=== PATIENT | female | born 1975 | race Caucasian/White ===

== ENCOUNTER 2024-05-18 16:16 | Outpatient (REF) | payer OTHER, SELFPAY ==
[2024-05-18 16:32] LABS: Amphetamine Screen Urine POSITIVE (Not Detect); Barbiturates, Urine Not Detected (Not Detect); Benzodiazepines Screen Urine POSITIVE (Not Detect); Buprenorphine Scr Not Detected (Not Detect); Cannabinoid Screen Urine Not Detected (Not Detect); Cocaine Screen Urine Not Detected (Not Detect); Fentanyl, urine Not Detected (Not Detect); Methadone Screen, Urine Not Detected (Not Detect); Opiate Screen Urine Not Detected (Not Detect); Oxycodone Screen Urine Not Detected (Not Detect); Phencyclidine Screen Urine Not Detected (Not Detect)
--- OUTSIDE RECORDS SUMMARY | 2024-05-20 18:05 | XMS_ITS | Continuity of Care Document ---
Author Organization [facility] Address [address] [place] [address]- Support Name Relationship Address Phone DARLING, AVILA Personal Relationship Unknown Unava ilable DARLING, AVILA Personal Relationship Unknown Unava ilable DARLING, AVILA Personal Relationship Unknown Unava ilable DARLING, AVILA Personal Relationship Unknown Unava ilable KWAME, ALVARO mother Unknown Unavailab le DARLING, AVILA Personal Relationship Unknown Unava ilable DARLING, AVILA Personal Relationship Unknown Unava ilable DARLING, AVILA Personal Relationship Unknown Unava ilable DARLING, AVILA Personal Relationship Unknown Unava ilable DARLING, AVILA Personal Relationship Unknown Unava ilable DARLING, AVILA Personal Relationship Unknown Unava ilable DARLING, AVILA Personal Relationship Unknown Unava ilable DARLING, AVILA Personal Relationship Unknown Unava ilable DARLING, AVILA Personal Relationship Unknown Unava ilable DARLING, AVILA Personal Relationship Unknown Unava ilable DARLING, AVILA Personal Relationship Unknown Unava ilable DARLING, AVILA Personal Relationship Unknown Unava ilable DARLING, AVILA Personal Relationship Unknown Unava ilable DARLING, AVILA spouse Unknown Unavailable DARLING, AVILA Personal Relationship Unknown Unava ilable DARLING, AVILA Personal Relationship Unknown Unava ilable DARLING, AVILA Personal Relationship Unknown Unava ilable DARLING, AVILA Personal Relationship Unknown Unava ilable DARLING, AVILA Personal Relationship Unknown Unava ilable DARLING, AVILA Personal Relationship Unknown Unava ilable DARLING, AVILA Personal Relationship Unknown Unava ilable DARLING, AVILA spouse Unknown Unavailable DARLING, AVILA Personal Relationship Unknown Unava ilable DARLING, AVILA Personal Relationship Unknown Unava ilable DARLING, AVILA Personal Relationship Unknown Unava ilable DARLING, AVILA Personal Relationship Unknown Unava ilable DARLING, AVILA Personal Relationship Unknown Unava ilable DARLING, AVILA spouse Unknown Unavailable DARLING, AVILA Personal Relationship Unknown Unava ilable DARLING, AVILA Personal Relationship Unknown Unava ilable DARLING, AVILA Personal Relationship Unknown Unava ilable DARLING, AVILA Personal Relationship Unknown Unava ilable DARLING, AVILA Personal Relationship Unknown Unava ilable DARLING, RAHUL A Personal Relationship Unknown Unavailable DARLING, AVILA Personal Relationship Unknown Unava ilable DARLING, AVILA Personal Relationship Unknown Unava ilable Care Team Providers Care Chef Teacher Name Role Phone Miguelito DIESEL ENGINE PIPE FITTER, Freda Manzo Primary Care Physician Encounter [facility] Date(s): 04/07/24 - 05/07/[address] Encounter Type: Triage Allergies, Adverse Reactions, Alerts Substance Criticality Severity Reaction Reaction Severity Status sulfa drugs Rash Active Immunizations Given and Recorded Vaccine Date Status Refusal Reason zoster vaccine, inactivated 02/19/24 Recorded zoster vaccine, inactivated 10/05/23 Recorded influenza virus vaccine, inactivated 02/19/24 Marty rded influenza virus vaccine, inactivated 03/27/23 Marty rded influenza virus vaccine, inactivated 04/17/22 Marty rded influenza virus vaccine, inactivated 02/24/21 Marty rded influenza virus vaccine, inactivated 04/02/19 Marty rded influenza virus vaccine, inactivated 03/29/18 Give n influenza virus vaccine, inactivated 02/25/17 Marty rded influenza virus vaccine, inactivated 1 02/17/15 Re corded influenza virus vaccine, inactivated 04/13/14 Marty rded influenza virus vaccine, inactivated 03/10/13 Give n influenza virus vaccine, inactivated 2 04/10/12 Gi jacob influenza virus vaccine, inactivated 01/25/11 Marty rded SARS-CoV-2(COVID-19)mRNA-LNP vac([id number]) 02/19/24 Recorded SARS-CoV-2(COVID-19)mRNA-LNP vac([id number]) 03/27/23 Recorded tetanus-diphtheria toxoids (Td) 06/28/22 Given tetanus-diphtheria toxoids (Td) 06/10/01 Recorded [id number] 12y+ bivalent booster vax 06/28/22 Given SARS-CoV-2 (COVID-19) mRNA BNT-162b2 vac 06/15/21 Recorded SARS-CoV-2 (COVID-19) mRNA BNT-162b2 vac 09/15/20 Recorded SARS-CoV-2 (COVID-19) mRNA BNT-162b2 vac 08/25/20 Recorded Measles/Mumps/Rubella Virus Vaccine 3 05/18/21 Giv en Measles/Mumps/Rubella Virus Vaccine 04/10/21 Recor ded Influenza Virus Vaccine (oldterm) 4 03/23/20 Recor ded Afluria (oldterm) 03/08/16 Given tetanus/diphtheria/pertussis, acel(Tdap) 5 05/07/12 Recorded 1Result Comment: [02/21/2015] FLUVIRIN Done at [facility] 2Admin Note: Per pt 3Result Comment: [facility]: [id number] 4Result Comment: [facility] 5[facility] Medications acetaminophen/butalbital/caffeine 325 mg-50 mg-40 mg oral capsule 1 capsule, By Mouth, Daily, PRN Pain , Severe, For severe migraines-please use sparingly, 0 Refills, Maintenance, 04/27/24 12:38:00 PM EST, Partial fill upon patient request if the prescription is for a schedule II opioid drug. Start Date: 04/27/24 Status: Ordered Repeat number: 1 ALPRAZolam 0.5 mg oral tablet 0.5 mg, By Mouth, 2 times a day, PRN, Refills 0, Maintenance, Anxiety, 04/30/24 9:08:00 AM EST, Partial fill upon patient request if the prescription is for a schedule II opioid drug. Start Date: 04/30/24 Status: Ordered Repeat number: 1 BuSpar 10 mg oral tablet 10 mg, By Mouth, 2 times a day, Refills 0, Maintenance, 04/27/24 12:42:00 PM EST, Partial fill uponpatient request if the prescription is for a schedule II opioid drug. Start Date: 04/27/24 Status: Ordered Repeat number: 1 DilTIAZem (Eqv-Cardizem CD) 120 mg/24 hours oral capsule, extended release 1 capsule = 120 mg, By Mouth, Daily, 0 Refills, Maintenance, 04/27/24 12:42:00 PM EST, Partial fillupon patient request if the prescription is for a schedule II opioid drug. Start Date: 04/27/24 Status: Ordered Repeat number: 1 estradiol 0.05 mg/24 hours weekly transdermal film, extended release 1 patch, Topically, Every week, apply to skin- every , # 4 patch, 0 Refills, Maintenance, 04/27/24 12:44:00 PM EST, Patch, Partial fill upon patient request if the prescription is for a schedule II opioid drug. Start Date: 04/27/24 Status: Ordered Quantity: 4.0 Unit: patch Repeat number: 1 Lexapro 10 mg oral tablet 1 tablet = 10 mg, By Mouth, Daily, # 30 tablet, 0 Refills, Maintenance, 04/27/24 12:43:00 PM EST, Tablet, Partial fill upon patient request if the prescription is for a schedule II opioid drug. Start Date: 04/27/24 Status: Ordered Quantity: 30.0 Unit: tablet Repeat number: 1 mirtazapine 7.5 mg oral tablet = 7.5 mg, By Mouth, Daily at bedtime, # 30 tablet, 0 Refills, Maintenance, 04/30/24 9:09:00 AM EST,Tablet, [id number], Partial fill upon patient request if the prescription is for aschedule II opioid drug., 157, cm, 04/29/24 8:48:00 EST, Height, 51.8, kg, 04/27/24 15:20:00 EST, Dry Weight Start Date: 04/30/24 Status: Ordered Quantity: 30.0 Unit: tablet Repeat number: 1 NexIUM 24HR 20 mg oral delayed release capsule 1 capsule = 20 mg, By Mouth, Daily, 0 Refills, Maintenance, 04/27/24 12:43:00 PM EST, Partial fill upon patient request if the prescription is for a schedule II opioid drug. Start Date: 04/27/24 Status: Ordered Repeat number: 1 Problem List Condition Confirmation Course Effective Dates Status Health St atus Informant Acne Confirmed Active Anxiety depression 1 Confirmed Active Chronic headache Confirmed Active Vertebral artery dissection Confirmed Active Blood pressure elevated without history of HTN Confirmed Active External hemorrhoid Confirmed Active GERD - Gastro-esophageal reflux disease Confirmed Active Gluteal tendonitis Confirmed Active Hypertension Confirmed Active Pelvic pain Confirmed Active Palpitations Confirmed Active Substance abuse Confirmed Active 1sees psych Social History Social History Type Response Smoking Status Never smoker entered on: 06/02/13 Sex Sex Representation Female (finding) Patient Care team information Care Team Personnel Name: Freda Farley NP Position: [facility] PCO Associate Professional Member Role: PCP Address: [address] [place] [address] Telecom: Name: Perry Khan RN Position: S RN Member Role: Primary Care Nurse Name: Stiven Tatum RN Position: S RN Member Role: Primary Care Nurse Name: Hope Camejo RN Position: S RN Member Role: Primary Care Nurse Name: Eunice William RN Position: [facility] RN Member Role: Primary Care Nurse Care Team Related Persons Name: AVILA SUAREZ Insurance Providers Guarantor [facility] Information #: 1 Payer: [facility] HMO Member Number: NA Policy Number: NA Group Number: NA
--- OUTSIDE RECORDS SUMMARY | 2024-05-20 18:05 | XMS_ITS | Continuity of Care Document ---
Author Organization [facility] Address [address] [place] [address]- Support Name Relationship Address Phone DARLING, AVILA [...] Unknown Unava ilable Care Team Providers Care Orthopedically Impaired Teacher Name Role Phone Miguelito TAG MAKER, Freda Manzo Primary Care Physician Encounter [facility] [place] Date(s): 04/01/24 - 05/01/24 [facility] [address] Encounter Type: Triage Allergies, Adverse Reactions, [...] virus vaccine, inactivated 01/25/11 Marty rded SARS-CoV-2(COVID-19)mRNA-LNP vac([id number]) 02/19/24 Recorded SARS-CoV-2(COVID-19)mRNA-LNP vac([id number]) 03/27/23 Recorded tetanus-diphtheria toxoids (Td) 06/28/22 Given tetanus-diphtheria toxoids (Td) 06/10/01 Recorded [id number] 12y+ bivalent booster vax 06/28/22 Given SARS-CoV-2 (COVID-19) mRNA BNT-162b2 vac 06/15/21 Recorded SARS-CoV-2 (COVID-19) mRNA BNT-162b2 vac 09/15/20 Recorded SARS-CoV-2 (COVID-19) mRNA BNT-162b2 vac 08/25/20 Recorded Measles/Mumps/Rubella Virus Vaccine 3 05/18/21 Giv en Measles/Mumps/Rubella Virus Vaccine 04/10/21 Recor ded Influenza Virus Vaccine (oldterm) 4 03/23/20 Recor ded Afluria (oldterm) 03/08/16 Given tetanus/diphtheria/pertussis, acel(Tdap) 5 05/07/12 Recorded 1Result Comment: [02/21/2015] [facility] 2Admin Note: Per pt 3Result Comment: [facility][NOTE 3]: [id number] 4Result Comment[facility] 5Location History[facility] Medications acetaminophen/butalbital/caffeine 325 mg-50 mg-40 mg oral [...] 0 Refills, Maintenance, 04/30/24 9:09:00 AM EST,Tablet, [id number], Partial fill upon patient request if the [...] Team Personnel Name: Freda Farley NP Position: [facility] PCO Associate Professional Member Role: PCP Address: [address] [place] [address] Telecom: Name: Perry Khan RN Position: S RN Member Role: Primary Care Nurse Name: Stiven Tatum RN Position: S RN Member Role: Primary Care Nurse Name: Hope Camejo RN Position: S RN Member Role: Primary Care Nurse Name: Eunice William RN Position: [facility] RN Member Role: Primary Care Nurse Care Team Related Persons Name: AVILA SUAREZ Insurance Providers Guarantor name: RAHUL Count includes the [facility] Information #: 1 Payer: [facility] HMO Member Number: NA Policy Number: NA Group Number: NA
--- OUTSIDE RECORDS SUMMARY | 2024-05-20 18:05 | XMS_ITS | Continuity of Care Document ---
Author Organization [facility] Medicine Address [address] [place] [address]- Care Team Providers Care Pharmacy Intake Technician Name Role Phone Miguelito HERNANDEZ, Freda Manzo Primary Care Physician Encounter [facility] Date(s): 03/20/24 - 04/19/[address] [address]- Attending Physician: Marti Alarcon Admitting Physician: Marti Alarcon Referring Physician: AdmtrMarti Allergies, Adverse Reactions, Alerts Substance Reaction Severity Status sulfa drugs Rash Active [...] virus vaccine, inactivated 01/25/11 Marty rded SARS-CoV-2(COVID-19)mRNA-LNP vac([id number]) 02/19/24 Recorded SARS-CoV-2(COVID-19)mRNA-LNP vac([id number]) 03/27/23 Recorded tetanus-diphtheria toxoids (Td) 06/28/22 Given tetanus-diphtheria toxoids (Td) 06/10/01 Recorded [id number] 12y+ bivalent booster vax 06/28/22 Given SARS-CoV-2 (COVID-19) mRNA BNT-162b2 vac 06/15/21 Recorded SARS-CoV-2 (COVID-19) mRNA BNT-162b2 vac 09/15/20 Recorded SARS-CoV-2 (COVID-19) mRNA BNT-162b2 vac 08/25/20 Recorded Measles/Mumps/Rubella Virus Vaccine 3 05/18/21 Giv en Measles/Mumps/Rubella Virus Vaccine 04/10/21 Recor ded Influenza Virus Vaccine (oldterm) 4 03/23/20 Recor ded Afluria (oldterm) 03/08/16 Given tetanus/diphtheria/pertussis, acel(Tdap) 5 05/07/12 Recorded 1Result Comment: [02/21/2015] FLUVIRIN Done at [facility] 2Admin Note: Per pt 3Result Comment: [facility]: [id number] [facility] Medications acetaminophen/butalbital/caffeine 325 mg-50 mg-40 mg oral tablet See Instructions, PRN Pain , Severe, Take 1 Tablet By Mouth Once Daily PRN for severe migrain. Use sparingly., # 10 tablet, 1 Refills, Maintenance, 04/08/24 14:07:00 EDT, [facility] #[id number], Partial fill upon patient request if the prescriptio... Start Date: 04/08/24 Status: Ordered busPIRone 10 mg oral tablet take 1 tablet by mouth twice a day Start Date: 02/18/24 Status: Ordered dilTIAZem 120 mg/24 hours oral tablet, extended release 1 tablet, By Mouth, Daily, # 90 tablet, 0 Refills, Maintenance, 02/18/24 10:12:00 EDT, [facility] #[id number], 158, cm, 12/11/23 8:58:00 EDT, Height, 55.8, kg, 11/29/23 11:14:00 EDT, Dry Weight Start Date: 02/18/24 Status: Ordered Diltiazem HCl 2%/Lidoncaine 1.5% rectal ointment Diltiazem HCl 2%/Lidoncaine 1.5% rectal ointment, See Instructions, # 60 Gm, Refills 5, Tot. Refills 5, Maintenance, Apply a pea sized amount to anus twice daily, 11/29/23 13:23:00 EDT, Supply Start Date: 11/29/23 Status: Ordered estradiol 0.05 mg/24 hours weekly transdermal film, extended release 1 patch, Topically, Every week, # 4 patch, 0 Refills, Maintenance, 11/01/20 16:12:00 EDT, Patch, Partial fill upon patient request if the prescription is for a schedule II opioid drug. Start Date: 11/01/20 Status: Ordered fluconazole 150 mg oral tablet 1 tablet = 150 mg, By Mouth, Once, epeat dose if still having symptoms in 72 hours, # 2 tablet, 0 Refills, Soft Stop, 09/25/23 15:08:00 EDT, Tablet, [facility] #[id number], Partial fill upon patient requestif the prescription is for a schedule II opioid lgo... Start Date: 09/25/23 Status: Ordered lactobacillus acidophilus oral capsule 1 capsule, By Mouth, 2 times a day, # 20 capsule, 0 Refills, Maintenance, 09/25/23 15:08:00 EDT, [facility] #[id number], Partial fill upon patient request if the prescription is for a schedule II opioid drug., 1 capsule By Mouth 2 times a day,x10 days, 158,... Start Date: 09/25/23 Stop Date: 10/05/23 Status: Ordered Lexapro 10 mg oral tablet 1 tablet = 10 mg, By Mouth, Daily, 0 Refills, Maintenance, 11/01/20 16:02:00 EDT, Partial fill uponpatient request if the prescription is for a schedule II opioid drug. Start Date: 11/01/20 Status: Ordered lidocaine 5% rectal cream See Instructions, apply 3 times a day, # 2 each, 0 Refills, Maintenance, 11/14/23 14:45:00 EDT, [facility] #[id number], Partial fill upon patient request if the prescription is for a schedule II opioid drug., apply 3 times a day, 158, cm, 11/14/23 14:03:00 E... Start Date: 11/14/23 Status: Ordered lisinopril 10 mg oral tablet 1, tablet, By Mouth, Daily, # 90 tablet, Refills 1, Tot. Refills 1, Maintenance, 10/09/22 9:06:00 EDT, Route to Pharmacy Electronically, [facility][id number], 158, cm, 06/28/22 14:27:00 EST, Height, 57, kg, 12/31/20 22:20:00 EDT, Dry Weight Start Date: 10/09/22 Status: Ordered NexIUM 24HR 20 mg oral delayed release tablet 1 tablet = 20 mg, By Mouth, Daily in AM, 0 Refills, Maintenance, 08/06/23 13:17:00 EST, Partial fill upon patient request if the prescription is for a schedule II opioid drug. Start Date: 08/06/23 Status: Ordered omeprazole 20 mg oral enteric coated capsule 1 capsule = 20 mg, By Mouth, Daily, # 90 capsule, 0 Refills, Maintenance, 11/28/22 14:47:00 EDT, [facility], Partial fill upon patient request if the prescription is for a schedule II opioid drug. Start Date: 11/28/22 Status: Ordered Requip = 0.25 mg, By Mouth, Daily, 0 Refills, Maintenance, 06/28/22 14:56:00 EST, Partial fill upon patient request if the prescription is for a schedule II opioid drug. Start Date: 06/28/22 Status: Ordered Vyvanse 50 mg oral capsule = 40 mg, By Mouth, Daily in AM, take 1 capsule by mouth every morning, 0 Refills Start Date: 11/28/22 Status: Ordered Xanax 1 mg oral tablet 0.5 tablet = 0.5 mg, By Mouth, Daily, PRN as needed for anxiety, prn, 0 Refills, Maintenance, 12/27/16 13:42:22 EDT Start Date: 12/27/16 Status: Ordered Problem List Condition Confirmation Course Effective Dates [...] Status Never smoker entered on: 06/02/13 Sex Cardiology * Event Display: Cardiology Office Note, Non-BH Authored Date: * Event Display: Cardiovascular Result Scanned Authored Date: * Event Display: Cardiovascular Result Scanned Authored Date: Laboratory * Event Display: Non BH Lab Results Authored Date: * Event Display: Non BH Lab Results Authored Date: * Event Display: Non BH Lab Results Authored Date: Cardiology Consult note * Event Display: Consult Note Cardiology Authored Date: Cardiology Outpatient Note * Kasia Castellanos M: PERFORM Event Display: Cardiology Note Office Authored Date: Radiology * Event Display: Ultrasound Neck, Non-BH Authored Date: * Event Display: Non BH Radiology Results Authored Date: MG Breast Views * Event Display: MM Mammogram Authored Date: * Event Display: MM Mammogram Authored Date: * Event Display: MM Mammogram Authored Date: * Event Display: MM Mammogram, Non- BH Authored Date: * Event Display: MM Mammogram, Non- BH Authored Date: * Event Display: MM Mammogram, Non- BH Authored Date: Patient Care team information Care Team Personnel Name: Freda Farley NP Position: S PCO Associate Professional Member Role: PCP Address: Address: [address] [place] [address]- Care Team Related Persons Name: AVILA SUAREZ Address: [address] [address]
--- OUTSIDE RECORDS SUMMARY | 2024-05-20 18:05 | XMS_ITS | Continuity of Care Document ---
Author Organization [facility] Address [address] [place] [address]- Support Name Relationship Address Phone DARLING, AVILA [...] Unknown Unava ilable Care Team Providers Care Senior Dynamics Crm Developer Name Role Phone Miguelito NATURAL RESOURCE ECONOMIST, Freda Manzo Primary Care Physician Encounter [facility] [id number] Date(s): 05/06/24 - 05/13/24 [facility] [address] [address] Attending Physician: Not on Staff, Attending MD Referring Physician: Markie Goncalves Encounter Type: Office Visit Allergies, Adverse Reactions, Alerts Substance Criticality Severity [...] virus vaccine, inactivated 01/25/11 Marty rded SARS-CoV-2(COVID-19)mRNA-LNP vac([id number]) 02/19/24 Recorded SARS-CoV-2(COVID-19)mRNA-LNP vac([id number]) 03/27/23 Recorded tetanus-diphtheria toxoids (Td) 06/28/22 Given tetanus-diphtheria toxoids (Td) 06/10/01 Recorded [id number] 12y+ bivalent booster vax 06/28/22 Given SARS-CoV-2 [...] Aid 2Admin Note: Per pt 3Result Comment: [facility]: [id number] 4[facility] Medications acetaminophen/butalbital/caffeine 325 mg-50 mg-40 mg [...] 0 Refills, Maintenance, 04/30/24 9:09:00 AM EST,Tablet, [facility] #[id number], Partial fill upon patient request if the [...] Team Personnel Name: Freda Farley NP Position: [facility] PCO Associate Professional Member Role: PCP Address: [address] [place] [address] Telecom: Name: Perry Khan RN Position: S RN Member Role: Primary Care Nurse Name: Deepti RNStiven Position: S RN Member Role: Primary Care Nurse Name: Hope Camejo RN Position: S RN Member Role: Primary Care Nurse Name: Eunice William RN Position: S RN Member Role: Primary Care Nurse Care Team Related Persons Name: AVILA SUAREZ Insurance Providers [facility]or [facility] Information #: 1 Payer: [facility] Member Number: [id number] Policy Number: NA Group Number: [id number] Health Plan Information #: 2 Payer: [facility] Member Number: [id number] Policy Number: NA Group Number: NA
--- OUTSIDE RECORDS SUMMARY | 2024-05-20 18:05 | XMS_ITS | Continuity of Care Document ---
Author Organization [facility] Address [address] [place] [address]- Support Name Relationship Address Phone DARLING, AVILA [...] Unknown Unava ilable Care Team Providers Care Locomotive Operator Helper Name Role Phone Miguelito GAS MAIN AND LINE FITTER, Freda Manzo Primary Care Physician [phone] Encounter [facility] Date(s): 04/08/24 - 05/08/[address] [address] Encounter Type: Triage Allergies, Adverse Reactions, Alerts [...] virus vaccine, inactivated 01/25/11 Marty rded SARS-CoV-2(COVID-19)mRNA-LNP vac([id number]) 02/19/24 Recorded SARS-CoV-2(COVID-19)mRNA-LNP vac(pit340) 03/27/23 Recorded tetanus-diphtheria toxoids (Td) 06/28/22 Given tetanus-diphtheria toxoids (Td) 06/10/01 Recorded [id number] 12y+ bivalent booster vax 06/28/22 Given SARS-CoV-2 (COVID-19) mRNA BNT-162b2 vac 06/15/21 Recorded SARS-CoV-2 (COVID-19) mRNA BNT-162b2 vac 09/15/20 Recorded SARS-CoV-2 (COVID-19) mRNA BNT-162b2 vac 08/25/20 Recorded Measles/Mumps/Rubella Virus Vaccine 3 05/18/21 Giv en Measles/Mumps/Rubella Virus Vaccine 04/10/21 Recor ded Influenza Virus Vaccine (oldterm) 4 03/23/20 Recor ded Afluria (oldterm) 03/08/16 Given tetanus/diphtheria/pertussis, acel(Tdap) 5 05/07/12 Recorded 1Result Comment: [02/21/2015] [facility] 2Admin Note: Per pt 3Result Comment: [facility]: [id number] 4Result Comment[facility] 5Location History[facility] Medications acetaminophen/butalbital/caffeine 325 mg-50 mg-40 mg oral [...] 0 Refills, Maintenance, 04/30/24 9:09:00 AM EST,Tablet, [facility] #[id number], Partial fill upon patient request if the [...] Team Personnel Name: Freda Farley NP Position: [facility] PCO Associate Professional Member Role: PCP Address: [address] [place] [address] Telecom: Name: Perry Khan RN Position: S RN Member Role: Primary Care Nurse Name: Stiven Tatum RN Position: S RN Member Role: Primary Care Nurse Name: Hope Camejo RN Position: S RN Member Role: Primary Care Nurse Name: Eunice William RN Position: S RN Member Role: Primary Care Nurse Care Team Related Persons Name: AVILA SUAREZ Insurance Providers Guarantor name: [facility] Information #: 1 Payer: [facility] H[facility] Member Number: NA Policy Number: NA Group Number: NA
--- OUTSIDE RECORDS SUMMARY | 2024-05-20 18:05 | XMS_ITS | Continuity of Care Document ---
Author Organization [facility] Address [address] [place] [address]- Support Name Relationship Address Phone DARLING, AVILA [...] Unknown Unava ilable Care Team Providers Care Performance Consultant Name Role Phone Miguelito WARDROBE ATTENDANT, Freda Manzo Primary Care Physician [place] [facility] [place] 04/30/24 [facility] [address] [place] [address] Encounter Diagnosis MDD (major depressive disorder), recurrent episode, moderate(Discharge Diagnosis) - 04/27/24 PAMELA (generalized anxiety disorder)(Discharge Diagnosis) - 04/27/24 Adjustment disorder with mixed emotional features(Discharge Diagnosis) - 04/27/24 Opioid use disorder, moderate, dependence(Discharge Diagnosis) - 04/27/24 Opiate dependence(Discharge Diagnosis) - 04/29/24 Discharge Disposition: A-D/C Home Attending Physician: Matthew Gutierrez MD Admitting Physician: Matthew Gutierrez MD Referring Physician: Matthew Gutierrez MD Encounter Type: Disch IP Allergies, Adverse Reactions, Alerts Substance Criticality Severity [...] virus vaccine, inactivated 01/25/11 Marty rded SARS-CoV-2(COVID-19)mRNA-LNP vac([id number]) 02/19/24 Recorded SARS-CoV-2(COVID-19)mRNA-LNP vac([id number]) 03/27/23 Recorded tetanus-diphtheria toxoids (Td) 06/28/22 Given tetanus-diphtheria toxoids (Td) 06/10/01 Recorded [id number] 12y+ bivalent booster vax 06/28/22 Given SARS-CoV-2 (COVID-19) mRNA BNT-162b2 vac 06/15/21 Recorded SARS-CoV-2 (COVID-19) mRNA BNT-162b2 vac 09/15/20 Recorded SARS-CoV-2 (COVID-19) mRNA BNT-162b2 vac 08/25/20 Recorded Measles/Mumps/Rubella Virus Vaccine 3 05/18/21 Giv en Measles/Mumps/Rubella Virus Vaccine 04/10/21 Recor ded Influenza Virus Vaccine (oldterm) 4 03/23/20 Recor ded Afluria (oldterm) 03/08/16 Given tetanus/diphtheria/pertussis, acel(Tdap) 5 05/07/12 Recorded 1Result Comment: [02/21/2015] FLUVIRIN Done at [facility] 2Admin Note: Per pt 3Result Comment: [facility]: [id number] 4Result Comment: [facility] 5Location History: [facility]; [facility] [...] 120 mg/24 hours oral capsule, extended release 120 mg, CD Capsule, By Mouth, 04/30/24 9:00:00 AM EST Start Date: 04/30/24 Stop Date: 04/30/24 Status: Completed Repeat number: 1 estradiol 0.05 mg/24 hours [...] 0 Refills, Maintenance, 04/30/24 9:09:00 AM EST,Tablet, [id number], Partial fill upon patient request if the [...] Active Substance abuse Confirmed Active 1sees psych Diagnosis Diagnosis Type Effective Dates Health Status Clinical Service Informant MDD (major depressive disorder), recurrent episode, moderate Discharge Diagnosis 04/27/24 PAMELA (generalized anxiety disorder) Discharge Diagnosis 04/27/24 Adjustment disorder with mixed emotional features Discharge Diagnosis 04/27/24 Opioid use disorder, moderate, dependence Discharge Diagnosis 04/27/24 Opiate dependence Discharge Diagnosis 04/29/24 Vital Signs Most recent to oldest [Reference Range]: 1 2 3 Height 157 cm (04/30/24 8:10 AM) 157 cm (04/29/24 8:48 AM) 157 cm (04/28/24 8:32 AM) Weight 51.8 kg (04/27/24 11:55 AM) Oxygen Saturation [94-100 %] 100 % (04/30/24 8:10 AM) 100 % (04/29/24 10:00 PM) 100 % (04/29/24 8:48 AM) Pulse Rate [55-90 bpm] 85 bpm (04/30/24 8:16 AM) 85 bpm (04/30/24 8:10 AM) 82 bpm (04/29/24 10:00 PM) Body Mass Index [18.5-24.99 kg/m2] 21.02 kg/m2 (04/27/24 11:55 AM) Blood Pressure [90-138/55-84 mm Hg] 136/108mm Hg (04/30/24 8:16 AM) 136/108mm Hg (04/30/24 8:10 AM) 135/76mm Hg (04/29/24 10:00 PM) Respiratory Rate [16-30 br/min] 20 br/min (04/30/24 8:10 AM) 20 br/min (04/30/24 8:00 AM) 16 br/min (04/29/24 10:00 PM) Temperature [96.8-100.4 DegF] 98.2 DegF (04/30/24 8:10 AM) 98.1 DegF (04/29/24 8:48 AM) 98.2 DegF (04/28/24 7:00 PM) Mode of Delivery (Oxygen) Room air (04/30/24 8:10 AM) Room air (04/29/24 8:48 AM) Room air (04/28/24 8:32 AM) Blood pressure sites Arm, left (04/30/24 8:10 AM) Arm, left (04/29/24 8:48 AM) Arm, left (04/28/24 8:32 AM) Temperature Route Temporal (04/30/24 8:10 AM) Temporal (04/29/24 8:48 AM) Oral (04/28/24 7:00 PM) Dry Weight 51.8 kg (04/27/24 11:55 AM) Social History Social History Type Response Smoking Status Never smoker entered on: 06/02/13 Sex Sex Representation Female (finding) Admission evaluation note * Brenda ZELAYA, Matthew Escobar: PERFORM Event Display: Admission Note Authored Date: [id number] Patient: ??ERIKC, RAHUL ? Age:??48 Years?Sex:??Female?:??1975?? 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 Upon arrival patient is calm and cooperative, she reported mood as better , she was noted tearful at times when talking about events leading to her impulsive suicide attempt. She reported that she??felt embarrassed??when the police showed up at her??work place after she was confronted with stealing opioids from work, she was asked to write a statement and when she was thought she was going to of [facility] addiction treatment, the police was waiting for her to summon her. 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 She reported that she resigned her job as she was leaving the pharmacy. ?? She said that she could not deal with the idea of going to assisted/residential, so she decide to buy a bottle of Tylenol PM and wrote 3 suicide letters, she believes her was able to track her (shewas in her car parked close to a bridge - she said she had no intention of jumping off the bridge-). Currently, she damantly denies any active/passive??suicidal thoughts, plan, or intent. She??regrets her suicide attempt, she is relief she survived, she reported her and mother and very supportive, she identified her family as protective factors.?She reported chronic insomnia, we discussed plan to start Remeron 7.5mg daily, she reported losing weight (~20 lbs) due to depression/anxiety. She is open to be referred to a PHP. ?? PSYCHIATRIC HISTORY - Patient reported she has been in psychiatric treatment for depression/anxiety?? since she was 16 yo, denies prior hospitalizations. She sees a therapist and a psychiatric nurse practitioner for [facility]. She is on Lexapro, Xanax, and Vyvanse (to augment Lexapro). Patient has history of opioid use disorder, has completed both outpatient [facility]and inpatient?? ([facility]) substance abuse treatment. She was on Suboxone until 2021.? FAMILY HISTORY - Denies? MEDICAL HISTORY - HTN, GERD, Migraines.?? - Allergies: Sulfas.? 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 - Legal History: patient denies prior legal involvement, she is said that pharmacy is filling charges for stealing narcotics at work.?? - Violence History: Denies?? - Substance Use Disorder: patient reported a history of substance use disorder, she was sober for 2years (while on Suboxone). She relapsed in October 2022, she has been using opioids?? sporadically (diverted from her job at [employer]), last used 2 weeks ago. Denies using any other substances.?? Mental Status Vitals & Measurements T:??98.6?F?? TMIN:??97.7?F?? TMAX:??98.6?F?? HR:??77??(Peripheral)?? RR:??16?? BP:??122/90?? SpO2:??100%?? WT:??51.8??kg?Mental Status Examination ?Appearance: well-groomed. ?Attitude: cooperative, pleasant, well related, engaged. ?Motor activity: calm. ?Mood: better ?Affect: appropriate. ?Speech: fluent, unimpaired. ?Perception: no impairment, denies auditory hallucinations, denies command hallucinations, denies visual hallucinations. ?Orientation: intact. ?Memory: intact. ?Abstraction: intact. ?Judgment: fair.?Insight: fair?Thought process: goal-directed. ?Thought content: no active suicidal ideation, no homicidal ideation, not paranoid, no delusions. ?Compliance: good. ?Reliability: fair. ?Suicidality/self-destructive behavior: none. ?Homicidality/violence: none. Berks Suicide Score Berks Suicide Assessment Ca (04/27/24) Berks Suicide Score Last Asked Ca (04/27/24) Suicidal Intent No Plan Past Month-CSSRS: Yes (04/27/24) Suicidal Thoughts Method Past Mon-CSSRS: Yes (04/27/24) Suicidal Thoughts Past Month - CSSRS: Yes (04/27/24) Suicidal Thoughts Since Last Asked-CSSRS: No (04/27/24) Suicide Behavior Lifetime - CSSRS: Yes (04/27/24) Suicide Behavior Past 3 Months - CSSRS: Yes (04/27/24) Suicide Behavior Since Last Asked-CSSRS: No (04/27/24) Suicide Intent w/Plan Past Month - CSSRS: Yes (04/27/24) Wish to be Past Month - CSSRS: Yes (04/27/24) Assessment/Plan ?? 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 IMPRESSION - MDD, moderate, recurrent - PAMELA - Adjustment disorder ?? PLAN - Legal Status: Voluntary - Observations: units standard ?? #MD/Anxiety - Continue Lexapro 20mg daily - Continue Xanax 0.5mg BID PRN - Continue Buspar 10mg BID - Start Remeron 7.5mg QHS ?? #Opioid Use Disorder - Patient was offered Suboxone, she is not interested at this time. - Motivational Interviewing. ?? Discharge Planning:??pending stabilization. Refer to PHP/IOP.? Total time spent: 75 min ?? Problem List/Past Medical History Ongoing Acne Anxiety depression Blood pressure elevated without history of HTN Chronic headache External hemorrhoid GERD - Gastro-esophageal reflux disease Gluteal tendonitis Hypertension Palpitations Pelvic pain Substance abuse Vertebral artery dissection Procedure/Surgical History ???HERBERT BSO - Total abdominal hysterectomy and bilateral salpingo-oophorectomy (11/26/2019)???Bursectomy (03/19/2018)???Colonoscopy (06/20/2017)???Myomectomy, excision of fibroid tumor(s) of uterus, 1to 4 intramural myoma(s) with total weight of 250 g or less and/or removal of surface myomas; abdominal approach (04/27/2011)???Unlisted laparoscopy procedure, uterus (04/27/2011)???Myomectomy, excision of fibroid tumor(s) of uterus, 1 to 4 intramural myoma(s) with total weight of 250 g or less and/or removal of surface myomas; abdominal approach (03/22/2005)???Unlisted laparoscopy procedure, uterus (03/22/2001)???Laparoscopy, surgical; cholecystectomy Medications Inpatient ALPRAZolam Tablet, 0.5 mg, By Mouth, 2 times a day, PRN BuSpar 10 mg oral tablet, 10 mg, By Mouth, 2 times a day BusPIRone Tablet, 10 mg, By Mouth, 2 times a day Chloraseptic Lozenge, 1 lozenge, By Mouth, Every 3 hours, PRN cloNIDine 0.1 mg oral tablet, 0.1 mg, By Mouth, 4 times a day DilTIAZem (Eqv-Cardizem CD) 120 mg/24 hours oral capsule, extended release, 120 mg, By Mouth, Daily diltiazem 120 mg/24 hours oral capsule, extended release, 120 mg, By Mouth, Daily Docusate Sodium Capsule, 100 mg= 1 capsule, By Mouth, 2 times a day, PRN Edita (estradiol) 0.075mg/24hr Patch, 1 patch, Topically, Every Saturday Edita (estradiol) 0.075mg/24hr Patch, 1 patch, Topically, Every Edita (estradiol) 0.075mg/24hr Patch, 1 patch, Topically, Every Edita (estradiol) 0.075mg/24hr Patch, 1 patch, Topically, Every Saturday Dulcolax Tablet, 5 mg, By Mouth, 2 times a day, PRN escitalopram 10 mg oral tablet, 20 mg, By Mouth, Daily Escitalopram Tablet, 20 mg, By Mouth, Daily Fioricet Tablet, 1 tablet, By Mouth, Every 4 hours, PRN GuaiFENEsin Liquid, 200 mg= 10 mL, By Mouth, Every 4 hours, PRN Ibuprofen Tablet, 400 mg, By Mouth, Every 6 hours, PRN Librium Capsule, 25 mg, By Mouth, Every 6 hours, PRN Maalox Plus Liquid, 30 mL, By Mouth, Every 4 hours, PRN Melatonin Tablet, 3 mg, By Mouth, Daily at bedtime, PRN Milk of Magnesia Liquid, 30 mL, By Mouth, 2 times a day, PRN MiraLax Powder, 17 Gm= 1 pack/packet, By Mouth, Daily, PRN mirtazapine 15 mg oral tablet, 7.5 mg, By Mouth, Daily at bedtime NaCL 0.9% Flush, 3 mL, IV Push, Every 8 hours NaCL 0.9% Flush, 3 mL, IV Push, Every 8 hours, PRN pantoprazole 40 mg oral delayed release tablet, 40 mg, By Mouth, Daily Pantoprazole Tablet, 20 mg, By Mouth, Daily Remove Patch, 1 application, Topically, Every Saturday Remove Patch, 1 application, Topically, Every Remove Patch, 1 each, Topically, Every Saturday Remove Patch, 1 each, Topically, Every Robitussin DM Liquid, 10 mL, By Mouth, Every 4 hours, PRN Senna Tablet, 8.6 mg= 1 tablet, By Mouth, 2 times a day, PRN Simethicone Tablet, 80 mg, Chew, 3 times a day, PRN Vistaril Capsule, 50 mg, By Mouth, Every 4 hours, PRN Home acetaminophen/butalbital/caffeine 325 mg-50 mg-40 mg oral capsule, 1 capsule, By Mouth, Daily, PRN BuSpar 10 mg oral tablet, 10 mg, By Mouth, 2 times a day DilTIAZem (Eqv-Cardizem CD) 120 mg/24 hours oral capsule, extended release, 120 mg= 1 capsule, By Mouth, Daily estradiol 0.05 mg/24 hours weekly transdermal film, extended release, 1 patch, Topically, Every week Lexapro 10 mg oral tablet, 10 mg= 1 tablet, By Mouth, Daily NexIUM 24HR 20 mg oral delayed release capsule, 20 mg= 1 capsule, By Mouth, Daily Xanax 1 mg oral tablet, 1 mg= 1 tablet, By Mouth, Daily, PRN Allergies sulfa drugs??(Rash) Social History Alcohol Frequency: 1-2 times per month. 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 Exercise Self assessment: Good condition. Regular exercise: Yes. Exercise type: Walking. Home/Environment Living situation: Home/Independent. Lives with: Children, Spouse. Substance Abuse Use: Past. Type: Ecstasy, Prescription medications, Abuse 5 years ago, rehab at [facility]. Abuse at a time when had post depression.. Other: Followed at Suboxone clinic, off Suboxonefor 10 days. Tobacco Use: Never smoker. Family History CAD - Coronary artery disease: Father. Cancer of breast: Mother and Other. Chronic pain: Father. Brother: History is negative Immunizations Vaccine Date Status zoster vaccine, inactivated 02/19/2024 Recorded influenza virus vaccine, inactivated 02/19/2024 Recorded SARS-CoV-2(COVID-19)mRNA-LNP vac([id number]) 02/19/2024 Recorded zoster vaccine, inactivated 10/05/2023 Recorded influenza virus vaccine, inactivated 03/27/2023 Recorded SARS-CoV-2(COVID-19)mRNA-LNP vac([id number]) 03/27/2023 Recorded tetanus-diphtheria toxoids (Td) 06/28/2022 Given [id number] 12y+ bivalent booster vax 06/28/2022 Given influenza virus vaccine, inactivated 04/17/2022 Recorded SARS-CoV-2 (COVID-19) mRNA BNT-162b2 vac 06/15/2021 Recorded Measles/Mumps/Rubella Virus Vaccine 05/18/2021 Given Comments : [facility]: [id number] Measles/Mumps/Rubella Virus Vaccine 04/10/2021 Recorded influenza virus vaccine, inactivated 02/24/2021 Recorded SARS-CoV-2 (COVID-19) mRNA BNT-162b2 vac 09/15/2020 Recorded SARS-CoV-2 (COVID-19) mRNA BNT-162b2 vac 08/25/2020 Recorded Influenza Virus Vaccine (oldterm) 03/23/2020 Recorded Comments : [facility] vaccine, inactivated 04/02/2019 Recorded influenza virus vaccine, inactivated 03/29/2018 Given influenza virus vaccine, inactivated 02/25/2017 Recorded Afluria (oldterm) 03/08/2016 Given influenza virus vaccine, inactivated 02/17/2015 Recorded Comments : [02/21/2015] FLUVIRIN Done at [facility] influenza virus vaccine, inactivated 04/13/2014 Recorded influenza virus vaccine, inactivated 03/10/2013 Given tetanus/diphtheria/pertussis, acel(Tdap) 05/07/2012 Recorded Comments : [facility] influenza virus vaccine, inactivated 04/10/2012 Given Comments : Per pt influenza virus vaccine, inactivated 01/25/2011 Recorded tetanus-diphtheria toxoids (Td) 06/10/2001 Recorded Hospital Progress note * Priscilla REYEZ, Sravanthi: PERFORM, SIGN, VERIFY Event Display: Progress Note Hospital Authored Date: Patient: RAHUL SUAREZ Age: 48 years Sex: Female : 1975 Associated Diagnoses: None Author: Sravanthi Wells RN Findings Problems Problem 1 : Problem - 1 04/29/2024 15:08 EST Problem 1 Danger/self - suicidal ideation Goals, Problem 1 Danger to self Problem 1, Patient agrees to Attend groups, Demonstrate ability to care for self, Take PRN medication as needed, Take scheduled medication, Work with Psychiatrist to find acceptable medication plan, Develop a safety plan for outpatient treatment, Other: Alert staff if feeling unsafe Problem 1, Nursing Interventions Assess/observe regularly for signs of increasing agitation, Assess/observe regularly for signs of increasing anxiety, Offer medication as needed Problem 1, Psychiatrist Interventions Evaluate medication, Order medication as appropriate, Supervise treatment Problem 1, Counselor Interventions Observe regularly for signs of increasing agitation, Observe regularly for signs of increasing anxiety, Monitor nutrition, Teach mindfulness Problem 1, Social Work Interventions Review discharge plans Chief Of Staff Doctor Comment: Problem 1 Daniel Lopez RN Problem 1, Start Date and Time 04/27/2024 12:30 Reviewed Plan With, Problem 1 Patient Patient Progression, Problem 1 Progressing . Narrative/Incidental Discharge Note Pt self presented to the med room this morning for medications and assessment. Reports depression at 3/10, anxiety at 2/10. Denies SI/SH, HI and AVH. Took all medications as prescribed. She spent themorning attending groups and being social with peers. Discharge process and paperwork reviewed withpatient. She verbalized understanding. Affect bright and she is engaged in the process. She reportsfeeling safe, denies SI/SH and is planning for future, stating that she is counting her admit date as her sobriety date and that my body fought for me and now I need to fight for my body . She was ambulatory on discharged and dressed with clothing and footwear appropriate for the weather. She was d ischarged into the care of her mother. . Discharge Information Case Management Discharge Plan : Case Management Discharge Plan Data 04/27/2024 11:28 EST Discharge Level of Care at Discharge Psychiatric Facility/Unit * Deepti REYEZ, Stiven: PERFORM, SIGN, VERIFY Event Display: Progress Note Hospital Authored Date: [id number] Patient: RAHUL SUAREZ Age: 48 years Sex: Female : 1975 Associated Diagnoses: None Author: Deepti REYEZ, [place] Findings Problems Problem 1 : Problem - 1 04/29/2024 15:08 EST Problem 1 Danger/self - suicidal ideation Goals, Problem 1 Danger to self Problem 1, Patient agrees to Attend groups, Demonstrate ability to care for self, Take PRN medication as needed, Take scheduled medication, Work with Psychiatrist to find acceptable medication plan, Develop a safety plan for outpatient treatment, Other: Alert staff if feeling unsafe Problem 1, Nursing Interventions Assess/observe regularly for signs of increasing agitation, Assess/observe regularly for signs of increasing anxiety, Offer medication as needed Problem 1, Psychiatrist Interventions Evaluate medication, Order medication as appropriate, Supervise treatment Problem 1, Counselor Interventions Observe regularly for signs of increasing agitation, Observe regularly for signs of increasing anxiety, Monitor nutrition, Teach mindfulness Problem 1, Social Work Interventions Review discharge plans . Narrative/Incidental Patient appeared to sleeping throughout the shift. Maintained on unit standard for safety checks. No problem overnight.. Discharge Information Case Management Discharge Plan : Case Management Discharge Plan Data 04/27/2024 11:28 EST Discharge Level of Care at Discharge Psychiatric Facility/Unit * Alesia Mercado RN: PERFORM, SIGN, VERIFY Event Display: Progress Note Hospital Authored Date: Patient: RAHUL SUAREZ Age: 48 years Sex: Female : 1975 Associated Diagnoses: None Author: Alesia Mercado RN Findings Narrative/Incidental No acute medical or safety concerns noted this shift. Vital signs remain stable at baseline. Pt didendorse 4/10 B/L hip pain, and received topical analgesic therapy for same. Pt denies current thoughts of SI/SIB. Pt denies A/V/TH. Pt did not report any deviation in bladder or bowel function. Pt's appetite remains at baseline, accepting all meals and snacks offered. Pt was noted to be bright, andsocial this shift. Pt engaged in positive conversation with this RN, and had positive peer interactions. Pt accepted HS medication without issue. Pt read in the Regine and was noted to read quietly. Pttransitioned to bed independently and remains sleeping comfortably at time of note. No acute medical or safety concerns noted at this time. Care team will continue to monitor for acute changes in mentation.. Discharge Information Case Management Discharge Plan : Case Management Discharge Plan Data 04/27/2024 11:28 EST Discharge Level of Care at Discharge Psychiatric Facility/Unit Note * Rafaela San NP: PERFORM Event Display: Discharge/Transfer Note Hospital Authored Date: [id number] Patient: ??RAHUL SUAREZ ? Age:??48 Years?Sex:??Female?:??1975?? Patient Information Discharge Location: [facility] Primary Care Physician: Freda Farley NP Admit Date/Time: 04/27/2024 11:35 Discharge Disposition Discharge Disposition: Home: No Services Discharge Diagnosis MDD (major depressive disorder), recurrent episode, moderate (F33.1) PAMELA (generalized anxiety disorder) (F41.1) Adjustment disorder with mixed emotional features (F43.29) Opioid use disorder, moderate, dependence (F11.20) Opiate dependence (F11.20) _ Discharge Medications Acetaminophen/Butalbital/Caffeine (acetaminophen/butalbital/caffeine 325 mg-50 mg-40 mg oral capsule)?1?capsule?By Mouth?Daily?as needed?Pain , Severe?For severe migraines-pleaseuse sparingly Alprazolam (ALPRAZolam 0.5 mg oral tablet)?0.5?Milligram?By Mouth?2 times a day?as needed?Anxiety BusPIRone (BuSpar 10 mg oral tablet)?10?Milligram?By Mouth?2 times a day Diltiazem (DilTIAZem (Eqv-Cardizem CD) 120 mg/24 hours oral capsule, extended release)?1?capsule?120?Milligram?By Mouth?Daily Escitalopram (Lexapro 10 mg oral tablet)?1?tab(s)?10?Milligram?By Mouth?Daily Esomeprazole (NexIUM 24HR 20 mg oral delayed release capsule)?1?capsule?20?Milligram?By Mouth?Daily Estradiol (estradiol 0.05 mg/24 hours weekly transdermal film, extended release)?1?patch(es)?Topically?Every week?apply to skin- every Mirtazapine (mirtazapine 7.5 mg oral tablet)?7.5?Milligram?By Mouth?Daily at bedtime ? Quality Measures Substance Use Treatment Provided at Discharge:??Pt will work with??chief engineer drilling and recovery and attend 12 step meetings ? Inpatient Medications Medications (22) Active SCHEDULED: (10) BusPIRone 10 mg Tablet (BusPIRone Tablet) ??10 mg, By Mouth, 2 times a day Diltiazem 120 mg/24 hour CD Capsule (DilTIAZem (Eqv-Cardizem CD) 120 mg/24 hours oral capsule, extended release) ??120 mg, By Mouth, Daily Edita (estradiol) 0.075mg/24hr Patch ??1 patch, Topically, Every Edita (estradiol) 0.075mg/24hr Patch ??1 patch, Topically, Every Saturday Escitalopram 10 mg Tablet (Escitalopram Tablet) ??20 mg, By Mouth, Daily lisdexamfetamine (Vyvanse) 50 mg capsule ??50 mg, By Mouth, Daily in AM Mirtazapine 15 mg Tablet (Mirtazapine Tablet) ??7.5 mg, By Mouth, Daily at bedtime Pantoprazole 20 mg EC Tablet (Pantoprazole Tablet) ??20 mg, By Mouth, Daily Remove Patch (Remove ??Patch) ??1 each, Topically, Every Saturday Remove Patch (Remove ??Patch) ??1 each, Topically, Every CONTINUOUS: (0) PRN: (12) Al hydroxide/Mg hydroxide/simethicone 200 mg-200 mg-20 mg/5 mL Susp UD (Maalox Plus Liquid) ??30 mL, By Mouth, Every 4 hours Alprazolam 0.5 mg Tablet (ALPRAZolam Tablet) ??0.5 mg, By Mouth, 2 times a day Bisacodyl 5 mg EC Tablet (Dulcolax Tablet) ??5 mg, By Mouth, 2 times a day Chloraseptic Lozenge ??1 lozenge, By Mouth, Every 3 hours Guaifenesin 200mg/10mL Syrup UD (GuaiFENEsin Liquid) ??200 mg 10 mL, By Mouth, Every 4 hours HydrOXYzine Pamoate 25mg Capsule (Vistaril Capsule) ??50 mg, By Mouth, Every 4 hours Ibuprofen 400 mg Tablet (Ibuprofen Tablet) ??400 mg, By Mouth, Every 6 hours Lidocaine 5% Topical Patch (Lidocaine 5% Patch) ??1 each, Topically, Daily Magnesium Hydroxide 8% Susp UD (Milk of Magnesia Liquid) ??30 mL, By Mouth, 2 times a day Olanzapine 5 mg Tablet (ZyPREXA 5 mg oral tablet) ??5 mg, By Mouth, Daily Remove Patch (Remove Lidocaine Patch) ??1 each, Topically, Daily at bedtime Trazodone 50 mg Tablet (Trazodone Tablet) ??25 mg, By Mouth, Daily at bedtime ? Medications Started Mirtazepine Medications Discontinued None Doses Changed None Allergies Allergies ?(Active and Proposed Allergies Only) sulfa drugs? (Severity: Unknown severity, Onset: Unknown) ?Reactions: Rash ? PCP Follow-Up/Heads-Up No acute issues Future Appointments Saturday 1:30 PM EST ?? With: Markie Goncalves [facility]: [facility] [address] [place] [address]- Status: Pending Saturday 9:40 AM EST ?? With: Marlon Reyes MD Where: [facility] [address] [place] [address]- Status: Pending Hospital Course Admission Note, 04/27/2024, Dr. 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 Upon arrival patient is calm and cooperative, she reported mood as better , she was noted tearful at times when talking about events leading to her impulsive suicide attempt. She reported that she??felt embarrassed??when the police showed up at her??work place after she was confronted with stealing opioids from work, she was asked to write a statement and when she was thought she was going to of [facility] addiction treatment, the police was waiting for her to summon her. 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 She reported that she resigned her job as she was leaving the pharmacy. ?? She said that she could not deal with the idea of going to assisted/residential, so she decide to buy a bottle of Tylenol PM and wrote 3 suicide letters, she believes her was able to track her (she was in her car parked close to a bridge - she said she had no intention of jumping off the bridge-). Currently, she damantly denies any active/passive??suicidal thoughts, plan, or intent. She??regrets her suicide attempt, she is relief she survived, she reported her and mother and very supportive, she identified her family as protective factors.?She reported chronic insomnia, we discussedplan to start Remeron 7.5mg daily, she reported losing weight (~20 lbs) due to depression/anxiety. She is open to be referred to a PHP. ?? PSYCHIATRIC HISTORY - Patient reported she has been in psychiatric treatment for depression/anxiety?? since she was 16 yo, denies prior hospitalizations. She sees a therapist and a psychiatric nurse practitioner for medmanagement. She is on Lexapro, Xanax, and Vyvanse (to augment Lexapro). Patient has history of opioid use disorder, has completed both outpatient ([facility])?and inpatient?? ([facility]) substance abuse treatment. She was on Suboxone until 2021.? FAMILY HISTORY - Denies? MEDICAL HISTORY - HTN, GERD, Migraines.?? - Allergies: Sulfas.? 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 - Legal History: patient denies prior legal involvement, she is said that pharmacy is filling charges for stealing narcotics at work.?? - Violence History: Denies?? - Substance Use Disorder: patient reported a history of substance use disorder, she was sober for 2years (while on Suboxone). She relapsed in October 2022, she has been using opioids?? sporadically (diverted from her job at [employer]), last used 2 weeks ago. Denies using any other substances.? Hospital Course Patient was admitted??on a conditional voluntary.?? Monitored on unit standard safety checks??and all appropriate safety measures in place.?? Treatment team saw the patient daily for medication management, mental status exam, and safety assessment.?Rahul was restarted on medications from home including BuSpar 10 mg twice daily,??Lexapro 20 mg daily, Vyvanse 50 mg every morning??(brought in from home),??diltiazem, pantoprazole, alprazolam 0.5 mg twice daily??as needed for anxiety.?? Rahul??was??initially??anxious,??possibly hypomanic, but??no symptoms of psychosis,??SI/HI.?? She was glad her suicide attempt did not work??and??could list protective factors including??good family relatio nships??and her care for her 11-year-old son.?? She quickly settled??into the milieu and took advantage of therapeutic groups. ??Insightful during daily treatment team meetings.?She believes her current medication regimen??is??fairly effective??and not related to the impulsive suicide attempt. ??Mirtazapine was added for sleep??with some effect and she wishes to continue it at home. ??She is interested in??exploring medications for??anxiety??instead of alprazolam??but was advised??that??benzodiazepines??may be??a last resort because of her history of addiction. ??Recommend continued??work on??finding effective anxiety??medication with outpatient prescriber. ??Has an outpatient provider and therapist??and appointments??have been scheduled.?? She will begin a partial hospitalization program. ?? Day of Discharge??Note On the day of discharge patient was evaluated and seen by primary care team. ??Patient was awake, alert and appropriately dressed for the weather. Mood was euthymic. Affect was congruent with mood, and non-labile. Thought content was negative for suicidal ideation, intent and plan, homicidal ideation, intent and plan. Thought process was linear.??Patient was counseled on coping skills, including ??maintaining outpatient provider appointments, and contacting outpatient providers in case requiredhelp in times of crisis. Medication compliance was??discussed. Patient was advised to ??seek help from providers in the setting of thoughts of self injury, intent and plan and homicidal ideation, intent and plan.?? Patient denies suicidal ideation, homicidal ideation and no longer meets inpatient level of care requirements. ??Patient does have risk factors for possible relapse in future, namely ongoing mental health issues of?opiate abuse, benzodiazepine abuse, depression and anxiety, ?but does not pose an immediate risk to self or??others upon discharge. ?? Mental Status Exam General appearance:??Well-groomed, appears stated age Eye contact:??Within normal limits Musculoskeletal:??No tics or tremors or impairments noted Behavior:??Cooperative Speech: Normal rate,??normal volume,??logical Mood:??Serious Affect:??Full range, congruent Thought Content:??I will have so much help from friends and family Thought Process:future oriented Suicidality/Self harm:??Denies Homicidality/violence:??Denies Memory:??Intact Executive Function:??Intact concentration:??Good Insight:??Good Judgement:??Good Reliability:??Good ?? Objective Assessment and Plan ? Measurements?? Height: 157 cm (04/29/24) Weight: 51.8 kg (04/27/24) Dry Weight: 51.8 kg (04/27/24) Body Mass Index: 21.02 kg/m2 (04/27/24) ? Vital Signs?? Pulse Rate: 85 bpm (04/30/24 08:16:00) Respiratory Rate: 16 br/min (04/29/24 22:00:00) Systolic Blood Pressure: 136 mm Hg (04/30/24 08:16:00) Diastolic Blood Pressure:??108 mm Hg??High (04/30/24 08:16:00) Pulse Pressure: 59 mm Hg (04/29/24 22:00:00) Oxygen Saturation: 100 % (04/29/24 22:00:00) ? . Physical Exam VS abd labs reviewed Consultants Seen by Hospitalist team for Medical H&P on admission Pending Results COVID-19 (2019 Novel Coronavirus) PCR ordered on 04/29/2024 Patient Instructions Patient instructions Continue taking medications??as prescribed Follow-up with your psychiatrist to discuss medications Follow-up with your outpatient therapist for psychotherapy Do not drink alcohol, use marijuana or cannabis products, or use illicit drugs such as cocaine If you notice a slip, quickly seek care to prevent relapse If having thoughts of hurting yourself or others, please reach out to family, trusted care provideror crisis line?? Post Discharge Care Discharge ?04/30/24 7:32:00 EST ?Order Comment:?? Home Health Face to Face ^HomeHealthFTF Results Discharge Labs No labs resulted during this visit.? _45 minutes spent on discharge * Luisana Stein: PERFORM Event Display: Discharge/Transfer Note Hospital Authored Date: [id number] Psychiatric Discharge Plan Entered On: 04/30/2024 8:59 EST Performed On: 04/30/2024 8:48 EST by Luisana Stein Discharge Plan Level of Care at Discharge : Home/Family/SelfCare/RestHome/Senior Care/Sub AbuseTx (AHR) Discharge Plan Additional Information : You are discharging today and returning to your home. You have established providers and an intake a the [facility]. You prefer to schedule your own aftercare appointments. Mode of Transportation : Family Arranged Transport Date/Time : 04/30/2024 11:30 EST Luisana Stein - 04/30/2024 8:48 EST Outpatient Programs [facility] Contact : [address] [address] [phone] FAX: [phone] [facility] Comment : You are on a cancellation list should an appointment open up sooner. PHP Date/Time : 05/21/2024 @ 11:00 AM jolly/ Luisana Wick - 04/30/2024 8:48 EST Clinics Clinic Contact : [facility], [facility], [facility] [address] [place] [address] Additional Clinic Agency Contact : John Deluna APRN [address] [place], [place] [id number] FAX: [phone] Luisana Stein - 04/30/2024 8:48 EST Other Other Agency Contact : [facility] ([facility]) [address] [place] [address] Other Comments : If you need support sooner, please contact [facility]. They may be able to get you an earlier intake assessment for [facility]. Physician/PCP : Freda Farley CNP [facility] [address] [place] [address] FAX: [phone] Instructions : Please schedule a follow-up apppintment with your PCP after discharge. Luisana Stein - 04/30/2024 8:48 EST Crisis Services Psychiatric Crisis Services : For your area are available 24 hours every day, by calling: Crisis Services : [facility] - RN TEACHER [phone] Luisana Stein - 04/30/2024 8:48 EST * Sravanthi Wells RN: PERFORM Event Display: Patient Education/Instruction Authored Date: [id number] Inpatient Adult Discharge Instructions. [facility] Inpatient Psychiatry [address] [place] [address] Name: RAHUL SUAREZ : 1975?? Visit: 04/27/2024 11:35?? Current Date: 04/30/2024 11:05 ?? Account: [id number]?? Inpatient Adult Discharge Instructions We would like to thank you for allowing us to assist you with your healthcare needs. The following includes patient education materials and information regarding your injury/illness. Our entire staffstrives to provide an excellent experience for our patients and their families. PLEASE ENSURE YOU FOLLOW-UP PER THE INSTRUCTIONS BELOW! ?? YOUR OPINION IS IMPORTANT TO US! Please complete the survey you may receive by mail or email. Your feedback will be used to make improvements to the healthcare experiences of our patients and their families. Surveys are administered by [employer] ?? If further treatment with your primary care physician or another doctor is recommended, it is important for you to keep the appointment. Call your primary care physician or return to the Emergency Department immediately if your condition worsens, fails to improve, or new symptoms develop. If you need to find a doctor, you can call [facility] [employer] for a referral at [phone] or toll free at [phone]) or log in to [email or web address].. ?? [facility], in keeping with [facility] guidance, no longer requires face masks for staff, patientsor visitors in most situations. Similiar to time spent indoors at other locations, there is the chance that you were exposed to repiratory viruses during your time with us (such as flu or COVID-19). If you develop symptoms concerning for a viral respiratory infection, please seek testing (and treatment if indicated) from your medical provider or home test kit. ?? You can view and manage your care through the patient portal or by using a health care ani of your choosing. [facility] is a website that allows you to securely view your medical information including your hospital discharge summary, office visit summaries, medications and follow-up visits. You can also request appointments, renew medications, and request access to your medical information using a health care ani of your choosing, or just ask a question. You can enroll at [email or web address] or register during your next office visit. You have been discharged from [facility] Inpatient Psychiatry, Patient Care Unit: MHU??. If you have any questions regarding these instructions, including results of studies pending, afteryou leave, please call us and we will be happy to assist you 31/12. [facility] Inpatient Psychiatry Nursing Unit Direct Phone Number, for 31/12 contact and results of studies pending Your Care Team Attending Physician Matthew Gutierrez MD?? Consulting Providers Matthew Gutierrez MD?? Discharging Providers Rafaela San NP Reason for Your Visit OD attempt ?? Your Diagnosis MDD (major depressive disorder), recurrent episode, moderate PAMELA (generalized anxiety disorder) Adjustment disorder with mixed emotional features Opioid use disorder, moderate, dependence Opiate dependence Tests Performed Below is a partial list of the tests performed during your hospitalization. You may have had other tests and procedures not included in this list. Please discuss all test results with your provider. COVID-19 (2019 Novel Coronavirus) PCR?? Primary Care Provider Freda Farley NP? Advance Directive Health Care Proxy on File Yes - Health Care Proxy Discharge Vitals Temperature: 98.2 DegF Height: 157 cm Pulse Rate: 85 bpm Weight: 51.8 kg Respiratory Rate: 20 br/min Body Mass Index: 21.02 kg/m2 Systolic Blood Pressure: 136 mm Hg Body surface area: 1.5 Diastolic Blood Pressure:??108 mm Hg??High ?? Oxygen Saturation: 100 % ?? Studies Pending All studies ordered during this hospital stay have been completed unless listed below. Please discuss all pending results with your provider listed above in these instructions. ?? COVID-19 (2019 Novel Coronavirus) PCR?? What to do next Instructions From Your Doctor ?? Orders? 04/30/24 7:32:00 EST?? Scheduled Follow-Up Appointments Saturday 1:30 PM EST ?? With: Markie Goncalves Where: [facility] [address] [address]- Status: Pending Saturday 9:40 AM EST ?? With: Marlon Reyes MD Where: [facility] [address] [address]- Status: Pending Discharge Medications RAHUL SUAREZ :1975 Visit Date:04/27/2024 Medications: Please continue your medications until treatment is completed or stopped by your provider. Medications not listed below should be discontinued. Discuss any questions related to medications with your provider. What How Much When Instructions Next Dose New Mirtazapine (mirtazapine 7.5 mg oral tablet) 7.5 Milligram Oral Daily at Bedtime Pickup at [id number] 04/30 at 9pm Changed Acetaminophen/ Butalbital/ Caffeine (acetaminophen/ butalbital/ caffeine 325 mg-50 mg-40 mgoral capsule) 1 capsule Oral Daily as needed for Pain , Severe For severe migraines-please use sparingly ?? as needed per instructions Changed Alprazolam (ALPRAZolam 0.5 mg oral tablet) 0.5 Milligram Oral Twice a day as needed for Anxiety as needed per instructions Changed BusPIRone (BuSpar 10 mg oral tablet) 10 Milligram Oral Twice a day 04/30 at 9pm Changed Diltiazem (DilTIAZem (Eqv-Cardizem CD) 120 mg/ 24 hours oral capsule, extended release) 1 capsule Oral Daily 05/01 at 9am Changed Escitalopram (Lexapro 10 mg oral tablet) 1 tab(s) Oral Daily 05/01 at 9am Changed Esomeprazole (NexIUM 24HR 20 mg oral delayed release capsule) 1 capsule Oral Daily 05/01 at 9am Changed Estradiol (estradiol 0.05 mg/ 24 hours weekly transdermal film, extended release) 1 patch(es) Topically Every week apply to skin- every ?? 05/07 Pharmacy Information [facility] #[id number]: [address], [place] [phone] ?? What How Much When Comments Stop Taking lisdexamfetamine (Vyvanse 50 mg oral capsule) 40 Milligram Oral Daily in the morning take 1 capsule by mouth every morning ?? Prescription Given During Visit Mirtazapine (mirtazapine 7.5 mg oral tablet) - 7.5 mg, By Mouth, Daily at bedtime, # 30 tablet, 0 Refills, [facility] #[id number], [address] [place] [phone]?? Laboratory Results Below is a partial list of the most recent Laboratory test results done prior to this discharge. You may have had other tests and procedures not included in this list. Please discuss all test resultswith your provider. Allergies (NKA means No Known Allergies) sulfa drugs??(Rash) Problems Active Problems??(13) Acne?? Anxiety depression?? Blood pressure elevated without history of HTN?? Chronic headache?? External hemorrhoid?? GERD?? GERD - Gastro-esophageal reflux disease?? Gluteal tendonitis?? Hypertension?? Palpitations?? Pelvic pain?? Substance abuse?? Vertebral artery dissection?? Education Materials Below is the list of Educational Leaflet Providered with your Discharge Instructions. Valuables and Belongings I fully understand and agree that [facility] accepts no responsibility for all my personal property including clothing, toilet articles, radios, jewelry, dentures, hearing aids, rings, money, or any other property that is in my possession or is brought to me after admission. I understand certain valuables may be placed in a hospital safe for a short period of time. I understand that the hospital is not liable for loss or damage due to accident, fire, or other natural occurrence while said property is in the safe. I accept full responsibility for any personal property that I keep with me, and will not hold the hospital responsible in case of loss or disappearance. I acknowledge that i have been encouraged to send valuables and belongings home. ?? Date for Pt to Sign Valuables/Belongings: 04/27/24 11:36:00 ?? Other Discharge Information ? Pulmonary Rehab Status?? Pulmonary Rehab Discharge Status?? Respiratory Rate: 20 br/min ?? Psychiatric Discharge Plan?? Discharge Plan Psych?? Outpatient Programs?? Clinics?? Other Agency?? Crisis Services?? Level of Care at Discharge: Home/Family/SelfCare/RestHome/Senior Care/Sub AbuseTx (AHR) [facility] Contact: [address] [phone]: [phone] Clinic Contact: [facility], [facility], [id number] [place] [address] Other Agency Contact: [facility] ([facility])[address] [place], [place] [phone] Psychiatric Crisis Services: For your area are available 24 hours every day, by calling: Discharge Plan Additional Information: You are discharging today and returning to your home. You have established providers and an intake a the [facility]. You prefer to schedule yourown aftercare appointments. [facility] Comment: You are on a cancellation list should an appointment open up sooner. Additional Clinic Agency Contact: John Deluna [facility] [address] [place], [place] [phone]: [phone] Other Comments: If you need support sooner, please contact [facility]. They may be ableto get you an earlier intake assessment for [facility]. Crisis Services: [facility] - RN TEACHER [phone] Mode of Transportation: Family [facility] Date/Time: 05/21/2024 @ 11:00 AM w/ Mariah ?? Physician/PCP: Freda A. Monts, CNPBayst[address] [phone]: [phone] ?? Arranged Transport Date/Time: 04/30/24 11:30:00 ? Instructions: Please schedule a follow-up apppintment with your PCP after discharge. ? Common Emergency Awareness Tips IS IT A STROKE? Act FAST and Check for these signs: FACE Does the face look uneven? ARM Does one arm drift down? SPEECH Does their speech sound strange? TIME Call at any sign of stroke ?? Heart Attack Signs Chest discomfort: Most heart attacks involve discomfort in the center of the chest and lasts more than a few minutes, or goes away and comes back. It can feel like uncomfortable pressure, squeezing, fullness or pain. Discomfort in upper body: Symptoms can include pain or discomfort in one or both arms, back, neck, jaw or stomach. Shortness of breath: With or without discomfort. Other signs: Breaking out in a cold sweat, nausea, or lightheaded. Remember, MINUTES DO MATTER. If you experience any of these heart attack warning signs, call to get immediate medical attention! ?? Smoking can increase your chances of developing chronic health problems and can cause harmful effects to other family members in your house. If you smoke, you are strongly encouraged to quit. Please call [facility] Link at [phone] or [phone]-[employer] ([phone]) or log in to [email or web address] for referrals to smoking cessation programs. ?? 029 Suicide & Crisis Lifeline is available 31/12 if you or someone you know needs to find a reason to keep living. By calling 569 you'll be connected to a skilled, trained counselor at a crisis center in your area. INPATIENT DISCHARGE INSTRUCTIONS SIGNATURE RAY BROOKSRAHUL ABRAHAM Location:[facility] Inpatient Psychiatry Registration Date and Time:04/27/2024 11:35 EST Primary Care Physician: Freda Farley NP, Attending Physician: Brenda ZELAYA, Matthew Escobar, I RAHUL SUAREZ, have received the above patient education materials/instructions and have verbalized understanding. If ambulance or transport services are being used I further acknowledge being given a choice of service. ?? If you need to contact me, please call me at this number: . Patient/Chair Finisher Name: Patient/Chair Finisher Signature: Relationship to Patient: Witness Name/Signature: Date: Patient Care team information Care Team Personnel Name: Freda Farley NP Position: [facility] Associate Professional Member Role: PCP Address: [address] [place] [address] Telecom: Name: Perry Khan RN Position: S RN Member Role: Primary Care Nurse Name: Stiven Tatum RN Position: S RN Member Role: Primary Care Nurse Name: Hope Camejo RN Position: S RN Member Role: Primary Care Nurse Name: Eunice William RN Position: S RN Member Role: Primary Care Nurse Care Team Related Persons Name: AVILA SUAREZ Insurance Providers Guarantor name: [facility] [employer] [facility] Information #: 1 Payer: [facility] [employer] Member Number: [id number] Policy Number: NA Group Number: [id number] Health Plan Information #: 2 Payer: [facility] [employer] Member Number: [id number] Policy Number: NA Group Number: NA
--- OUTSIDE RECORDS SUMMARY | 2024-05-20 18:05 | XMS_ITS | Continuity of Care Document ---
Author Organization [facility] Address [address] [place] [id number] Support Name Relationship Address Phone DARLING, PUMA Personal Relationship Unknown Unava ilable DARLING, PUMA Personal Relationship Unknown Unava ilable DARLING, PUMA Personal Relationship Unknown Unava ilable DARLING, PUMA Personal Relationship Unknown Unava ilable KWAME, ALVARO mother Unknown Unavailab le DARLING, PUMA Personal Relationship Unknown Unava ilable DARLING, PUMA Personal Relationship Unknown Unava ilable DARLING, PUMA Personal Relationship Unknown Unava ilable DARLING, PUMA Personal Relationship Unknown Unava ilable DARLING, PUMA Personal Relationship Unknown Unava ilable DARLING, PUMA Personal Relationship Unknown Unava ilable DARLING, PUMA Personal Relationship Unknown Unava ilable DARLING, PUMA Personal Relationship Unknown Unava ilable DARLING, PUMA Personal Relationship Unknown Unava ilable DARLING, PUMA Personal Relationship Unknown Unava ilable DARLING, PUMA Personal Relationship Unknown Unava ilable DARLING, PUMA Personal Relationship Unknown Unava ilable DARLING, PUMA Personal Relationship Unknown Unava ilable DARLING, PUMA spouse Unknown Unavailable DARLING, PUMA Personal Relationship Unknown Unava ilable DARLING, PUMA Personal Relationship Unknown Unava ilable DARLING, PUMA Personal Relationship Unknown Unava ilable DARLING, PUMA Personal Relationship Unknown Unava ilable DARLING, PUMA Personal Relationship Unknown Unava ilable DARLING, PUMA Personal Relationship Unknown Unava ilable DARLING, PUMA Personal Relationship Unknown Unava ilable DARLING, PUMA spouse Unknown Unavailable DARLING, PUMA Personal Relationship Unknown Unava ilable DARLING, PUMA Personal Relationship Unknown Unava ilable DARLING, PUMA Personal Relationship Unknown Unava ilable DARLING, PUMA Personal Relationship Unknown Unava ilable DARLING, PUMA Personal Relationship Unknown Unava ilable DARLING, PUMA spouse Unknown Unavailable DARLING, PUMA Personal Relationship Unknown Unava ilable DARLING, PUMA Personal Relationship Unknown Unava ilable DARLING, PUMA Personal Relationship Unknown Unava ilable DARLING, PUMA Personal Relationship Unknown Unava ilable DARLING, PUMA Personal Relationship Unknown Unava ilable DARLING, RAHUL A Personal Relationship Unknown Unavailable DARLING, PUMA Personal Relationship Unknown Unava ilable DARLING, PUMA Personal Relationship Unknown Unava ilable Care Team Providers Care Radiation Therapy Technician Name Role Phone Miguelito HEALTH AIDE, Freda Manzo Primary Care Physician [place] [facility] Date(s): 04/24/24 - 04/27/[address] Encounter Diagnosis Acetaminophen overdose(Final) - 04/24/24 Hypertension(Final) - 04/24/24 Substance abuse(Final) - 04/24/24 Discharge Disposition: Transfer to Psych Facility Attending Physician: Harjinder Ortega MD Admitting Physician: Stephan Mancilla Referring Physician: Not on Staff, Referring MD Encounter Type: Disch IP Allergies, Adverse [...] virus vaccine, inactivated 01/25/11 Marty rded SARS-CoV-2(COVID-19)mRNA-LNP vac([id number]) 02/19/24 Recorded SARS-CoV-2(COVID-19)mRNA-LNP vac([id number]) 03/27/23 Recorded tetanus-diphtheria toxoids (Td) 06/28/22 Given tetanus-diphtheria toxoids (Td) 06/10/01 Recorded [id number] 12y+ bivalent booster vax 06/28/22 Given SARS-CoV-2 (COVID-19) mRNA BNT-162b2 vac 06/15/21 Recorded SARS-CoV-2 (COVID-19) mRNA BNT-162b2 vac 09/15/20 Recorded SARS-CoV-2 (COVID-19) mRNA BNT-162b2 vac 08/25/20 Recorded Measles/Mumps/Rubella Virus Vaccine 3 05/18/21 Giv en Measles/Mumps/Rubella Virus Vaccine 04/10/21 Recor ded Influenza Virus Vaccine (oldterm) 4 03/23/20 Recor ded Afluria (oldterm) 03/08/16 Given tetanus/diphtheria/pertussis, acel(Tdap) 5 05/07/12 Recorded 1Result Comment: [02/21/2015] [facility] 2Admin Note: Per pt 3Result Comment: [facility]: [id number] 4Result Comment[facility] Medications acetaminophen/butalbital/caffeine 325 mg-50 mg-40 mg oral capsule 1 capsule, By Mouth, Daily, PRN Pain , Severe, For severe migraines-please use sparingly, 0 Refills, Maintenance, 04/27/24 12:38:00 PM EST, Partial fill upon patient request if the prescription is for a schedule II opioid drug. Start Date: 04/27/24 Status: Ordered Repeat number: 1 BuSpar 10 [...] Date: 04/27/24 Status: Ordered Repeat number: 1 diltiazem 120 mg/24 hours oral capsule, extended release 120 mg, CD Capsule, By Mouth, 04/27/24 9:00:00 AM EST Start Date: 04/27/24 Stop Date: 04/27/24 Status: Completed Repeat number: 1 estradiol 0.05 [...] Date: 04/27/24 Status: Ordered Repeat number: 1 Xanax 1 mg oral tablet 1 tablet = 1 mg, By Mouth, Daily, PRN as needed for anxiety, 0 Refills, Maintenance, 04/27/24 12:41:00 PM EST, Tablet, Partial fill upon patient [...] Active Substance abuse Confirmed Active 1sees psych Vital Signs Most recent to oldest [Reference Range]: 1 2 3 Height 158 cm (04/27/24 7:45 AM) 158 cm (04/27/24:25 AM) 158 cm (04/26/24 8:03 PM) Weight 52.3 kg (04/24/24 3:50 AM) 53.9 kg (04/23/24 10:05 PM) 53.9 kg (04/23/24 9:56 PM) Oxygen Saturation [94-100 %] 98 % (04/27/24 7:45 AM) 97 % (04/27/24:25 AM) 98 % (04/26/24 8:03 PM) Pulse Rate [55-90 bpm] 68 bpm (04/27/24 10:13 AM) 68 bpm (04/27/24 7:45 AM) 52 bpm *L* (04/27/24: AM) Body Mass Index [18.5-24.99 kg/m2] 20.95 kg/m2 (04/24/24 3:50 AM) 21.59 kg/m2 (04/23/24 9:56 PM) Blood Pressure [90-138/55-84 mm Hg] 109/63mm Hg (04/27/24 10:13 AM) 109/63mm Hg (04/27/24 7:45 AM) 100/63mm Hg (04/27/24:25 AM) Respiratory Rate [16-30 br/min] 16 br/min (04/27/24 7:45 AM) 17 br/min (04/27/24:25 AM) 16 br/min (04/26/24 8:03 PM) Temperature [96.8-100.4 DegF] 98.0 DegF (04/27/24 7:45 AM) 97.7 DegF (04/27/24:25 AM) 98.0 DegF (04/26/24 8:03 PM) Mode of Delivery (Oxygen) Room air (04/27/24 7:45 AM) Room air (04/27/24 5:25 AM) Room air (04/26/24 8:03 PM) Blood pressure sites Arm, right (04/27/24 7:45 AM) Arm, right (04/27/24 5:25 AM) Arm, right (04/26/24 8:03 PM) Temperature Route Oral (04/27/24 7:45 AM) Oral (04/27/24 5:25 AM) Oral (04/26/24 8:03 PM) Dry Weight 52.3 kg (04/24/24 3:50 AM) 53.9 kg (04/23/24 10:05 PM) 53.9 kg (04/23/24 9:56 PM) Weight Obtained Via Bed scale (04/23/24 9:56 PM) Social History Social History Type Response Smoking Status Never smoker entered on: 06/02/13 Sex Sex Representation Female (finding) Admission evaluation note * Stephan Mancilla: PERFORM Event Display: Admission Note Authored Date: [id number] Patient: ??RAHUL ALCOCER ? Age:??48 Years?Sex:??Female?:??1975?? Chief Complaint/Reason for Consultation SI History of Present Illness DOS: 04/23/2024 ?? 48-year-old female with a significant past medical history of anxiety, depression, hypertension,chronic headaches, GERD, palpitations, and substance abuse presented for evaluation following an intentional overdose. She arrived via ambulance with police escort after her discovered a suicide note indicating intent to ingest pills, particularly Xanax. 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 Following this incident, she attended a Narcotics Anonymous meeting and was [place] a [place] bridge. Upon arrival to the ED, she was awake but appeared intoxicated, with a sedative toxidrome, demonstrating limited responsiveness and slurred speech. Pupils were 4 mm, reactive bilaterally, with preserved airway reflexes, hemodynamic stability, and no evidence of respiratorydistress. Labs drawn on arrival revealed an elevated acetaminophen level of 144 mg/L; subsequent history from her indicated ingestion of approximately 25 tablets of Tylenol PM, totaling a potential dose of 12,500 mg of acetaminophen and 625 mg of diphenhydramine. A repeat acetaminophen level taken a few hours later showed a downtrend to 128 mg/L, with stable liver function tests (AST 17, ALT 26). She was started on N-acetylcysteine therapy for acetaminophen toxicity. Given her persistent suicidal ideation and substance use history, she was placed on?? a one-to-one sitter. The patient remained hemodynamically stable with a sinus rhythm on EKG, and??admission was requested for continued NAC therapy and monitoring of liver function. Review of Systems ?? All other systems were reviewed and are negative. Objective Measurements?? Height: 158 cm (04/24/24) Weight: 52.3 kg (04/24/24) Dry Weight: 52.3 kg (04/24/24) Body Mass Index: 20.95 kg/m2 (04/24/24) ? Vital Signs?? Temperature: 97.4 DegF (04/24/24 03:50:00) Temperature Route: Oral (04/24/24 03:50:00) Pulse Rate: 72 bpm (04/24/24 03:50:00) Respiratory Rate: 20 br/min (04/24/24 03:50:00) Systolic Blood Pressure:??164 mm Hg??High (04/24/24 03:50:00) Diastolic Blood Pressure:??98 mm Hg??High (04/24/24 03:50:00) Blood pressure sites: Arm, left (04/24/24 03:50:00) Mean Arterial Pressure: 120 mm Hg (04/24/24 03:50:00) Pulse Pressure: 66 mm Hg (04/24/24 03:50:00) Oxygen Saturation: 100 % (04/24/24 03:50:00) Mode of Delivery (Oxygen): Room air (04/24/24 03:50:00) End Tidal CO2: 35 mm Hg (04/24/24 03:00:00) Early Warning Score: 2 (04/24/24 04:11:18) ? Perfusion Assessment Cardiovascular Symptoms: Hypertension (04/23/24 21:00:00) Skin Temperature Upper Extremities: Dry (04/23/24 21:00:00) ? Pain Scores 1 - 10 Pain Scale Score: 0 (22:05) ? Ventilator Settings?? No qualifying data available. ?? Intake/Output? 04/24 02:29 04/24 07:00 04/23 07:00 04/22 07:00 04/21 07:00 ?? 04/24 06:24 04/24 06:24 04/24 06:59 04/23 06:59 04/22 06:59 Intake ? 1700 ?941.7 ?758.3 ?0 ?0 Output ?0 ?0 ?0 ?0 ?0 Net Total ? 1700 ?941.7 ?758.3 ?0 ?0 ? 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 [place] Coma Scale [place] Coma Score: 14 (04/23/24 22:05:00) Motor Response-Adult: Obeys commands (04/23/24 22:05:00) Response Eye Opening: Spontaneously (04/23/24 22:05:00) Verbal Response-Adult: Disoriented and converses (04/23/24 22:05:00) ? Basic ADLs Assistance w bathing/eating/dressing: Yes (04/24/24) Need for Assist w/ Walk/Transfer: Yes (04/24/24) ? Mobility & Ambulation Level Mobility & Ambulation Level?? No qualifying data available. ?? Therapeutic Activity Therapeutic Activities/Mobility/Balance?? No qualifying data available. ? Physical Exam Constitutional: Alert, in no acute distress. Head: Normocephalic. Eyes: Pupils are equal, round and reactive to light. Extraocular muscles intact. No pallor or scleral icterus Ear, Nose and Throat: mucous membranes moist. Ears and nose - no obvious deformities Trachea midline. Neck: Supple, Full range of motion.No JVD or bruits. Respiratory:??Clear to auscultation. No wheezing or rhonchi.??No use of accessory muscles. No tactile fremitus.?? Cardiovascular:??PMI not visible. S1 S2 regular. No murmurs, rubs or gallops. Gastrointestinal:??Abdomen soft, non-tender, non-distended. Normal bowel sounds. No pulsatile mass.No hepatosplenomegaly. Genitourinary:??No costovertebral angle tenderness. Extremities: No lower extremity pitting edema. No cyanosis or clubbing. Neurologic:??AAOx3, Cranial nerves II-XII grossly intact. Speech normal, no facial droop. No focal neurological deficits. Moves all extremities spontaneously.?? Psychiatric: flat affect. Assessment/Plan Diagnoses Acetaminophen overdose ??(T39.1X1A) Hypertension ??(I10) Substance abuse ??(F19.10) Suicidal ideation ??(R45.851) ?? Acetaminophen overdose (T39.1X1A) Substance abuse (F19.10) Suicidal ideation (R45.851) ? She was admitted as inpatient to telemetry. Continue with an acetylcysteine. I contacted??poison control??and recommended labs??at 8 PM??2 hours before??the last phase of NAC. Patient should be tested for PT, INR, LFTs, acetaminophen level. Follow-up with morning labs. Patient does not seem to have??anticholinergic??effects. She is alert and oriented x 3. Will hold on home medications for now. 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 Psych consult. ?? Hypertension (I10):?? Hold blood pressure medications for now. ?? VTE Prophylaxis:??Low risk per Rupal score ?VTE Prophylaxis Assessment:??Risk Level documented as Low Risk ?? Code Status:??Full code. ?Order Code Status:??Code Status Ordered ? A total of 75 minutes was spent today reviewing the chart/medical records, speaking with the patient, formulating and discussing the treatment plan, and documenting the findings and encounter. ? Histories Allergies Allergies ?(Active and Proposed Allergies Only) sulfa drugs? (Severity: Unknown severity, Onset: Unknown) ?Reactions: Rash ? Past Medical History/Problem List Active Problems(12) Acne Anxiety depression Blood pressure elevated without history of HTN Chronic headache External hemorrhoid GERD - Gastro-esophageal reflux disease Gluteal tendonitis Hypertension Palpitations Pelvic pain Substance abuse Vertebral artery dissection ? Past Surgical History HERBERT BSO - Total abdominal hysterectomy and bilateral salpingo-oophorectomy: 11/26/19 Bursectomy: 03/19/18 Colonoscopy: 06/20/17 Myomectomy, excision of fibroid tumor(s) of uterus, 1 to 4 intramural myoma(s) with total weight of250 g or less and/or removal of surface myomas; abdominal approach: 04/27/11 Unlisted laparoscopy procedure, uterus: 04/27/11 Myomectomy, excision of fibroid tumor(s) of uterus, 1 to 4 intramural myoma(s) with total weight of250 g or less and/or removal of surface myomas; abdominal approach: 03/22/05 Unlisted laparoscopy procedure, uterus: 03/22/01 Laparoscopy, surgical; cholecystectomy ? Social History Alcohol Details:??Frequency: 1-2 times per month. Employment/School Details:??Status: Homemaker. Exercise Details:??Self assessment: Good condition. ??Regular exercise: Yes. ??Exercise type: Walking. Home/Environment Details:??Living situation: Home/Independent. ??Lives with: Children, Spouse. Substance Abuse Details:??Use: Past. ??Type: Ecstasy, Prescription medications, Abuse 5 years ago, rehab at [facility]. Abuse at a time when had post depression.. ??Other: Followed at Suboxone clinic, off Suboxone for 10 days. Tobacco Details:??Use: Never smoker. ? Psychosocial History ? Family History Mother: Cancer of breast (Mother tested BRCA negative) Father??(): CAD - Coronary artery disease; Chronic pain Other: Cancer of breast (Maternal aunt x2) ? Medications Home Medications Acetaminophen/Butalbital/Caffeine (acetaminophen/butalbital/caffeine 325 mg-50 mg-40 mg oral tablet)?See Instructions?as needed?Pain , Severe?Take 1 Tablet By Mouth Once Daily PRN for severe migrain. Use sparingly. Alprazolam (Xanax 1 mg oral tablet)?1?tab(s)?1?Milligram?By Mouth?Daily?prn?0.5?as needed?as needed for anxiety?0.5 BusPIRone (busPIRone 10 mg oral tablet)?take 1 tablet by mouth twice a day Diltiazem (dilTIAZem 120 mg/24 hours oral tablet, extended release)?1?tab(s)?By Mouth?Daily Escitalopram (Lexapro 10 mg oral tablet)?Milligram?1?tab(s)?10?By Mouth?Daily?10?2?20?1 Esomeprazole (NexIUM 24HR 20 mg oral delayed release tablet)?Milligram?1?tab(s)?20?By Mouth?Daily in AM Estradiol (estradiol 0.05 mg/24 hours weekly transdermal film, extended release)?Every week?1?patch(es)?Topically Fluconazole (fluconazole 150 mg oral tablet)?1?tab(s)?150?Milligram?By Mouth?Once?epeat dose if still having symptoms in 72 hours Lactobacillus Acidophilus (lactobacillus acidophilus oral capsule)?1?capsule?By Mouth?2times a day?for 10?Days Lidocaine Topical (lidocaine 5% rectal cream)?See Instructions?apply 3 times a day lisdexamfetamine (Vyvanse 50 mg oral capsule)?take 1 capsule by mouth every morning?Daily in AM?40?Milligram?By Mouth Lisinopril (lisinopril 10 mg oral tablet)?1?tablet?By Mouth?Daily Miscellaneous Rx (Diltiazem HCl 2%/Lidoncaine 1.5% rectal ointment)?See Instructions?Apply a pea sized amount to anus twice daily Omeprazole (omeprazole 20 mg oral enteric coated capsule)?Milligram?1?capsule?20?By Mouth?Daily Ropinirole (Requip)?Daily?0.25?Milligram?By Mouth ? Inpatient Medications Medications (8) Active SCHEDULED: (1) NaCl 0.9% Flush 3ml (NaCL 0.9% Flush) ??3 mL, IV Push, Every 8 hours CONTINUOUS: (0) PRN: (7) Dextromethorphan-Guaifenesin 20 mg-200 mg/10 mL Liqu UD (Robitussin DM Liquid) ??10 mL, By Mouth, Every 4 hours Docusate Sodium 100 mg Capsule (Docusate Sodium Capsule) ??100 mg 1 capsule, By Mouth, 2 times a day Melatonin 3 mg Tablet (Melatonin Tablet) ??3 mg, By Mouth, Daily at bedtime NaCl 0.9% Flush 3ml (NaCL 0.9% Flush) ??3 mL, IV Push, Every 8 hours Polyethylene Glycol 17 Gm Powder (MiraLax Powder) ??17 Gm 1 pack/packet, By Mouth, Daily Senna Tablet ??8.6 mg 1 tablet, By Mouth, 2 times a day Simethicone 80 mg Chewable Tablet (Simethicone Tablet) ??80 mg, Chew, 3 times a day ? Vaccinations and Immunoprophylaxis influenza virus vaccine, inactivated: 0.5 Unknown (02/19/24 08:00:00) influenza virus vaccine, inactivated: 0.5 Unknown (03/27/23 08:00:00) influenza virus vaccine, inactivated: 0.5 Unknown (04/17/22 07:00:00) influenza virus vaccine, inactivated: 0.5 Unknown (02/24/21 08:00:00) influenza virus vaccine, inactivated: 0.5 Unknown (04/02/19 08:00:00) influenza virus vaccine, inactivated: 0.5 mL (03/29/18 09:04:00) influenza virus vaccine, inactivated: 0 Unknown (02/25/17 12:00:00) influenza virus vaccine, inactivated: 0 Unknown (02/17/15 00:00:00) influenza virus vaccine, inactivated: 0.5 mL (04/13/14 00:00:00) influenza virus vaccine, inactivated: 0.05 mL (03/10/13 10:05:00) influenza virus vaccine, inactivated: 0.5 mL (04/10/12 13:48:00) influenza virus vaccine, inactivated: 0 Unknown (01/25/11 08:00:00) Measles/Mumps/Rubella Virus Vaccine: 0.5 mL (05/18/21 14:37:00) Measles/Mumps/Rubella Virus Vaccine: 0.5 Unknown (04/10/21 08:00:00) SARS-CoV-2 (COVID-19) mRNA BNT-162b2 vac: 0.3 Unknown (06/15/21 07:00:00) SARS-CoV-2 (COVID-19) mRNA BNT-162b2 vac: 0.3 Unknown (09/15/20 08:00:00) SARS-CoV-2 (COVID-19) mRNA BNT-162b2 vac: 0.3 Unknown (08/25/20 08:00:00) SARS-CoV-2(COVID-19)mRNA-LNP vac(qxn200): 0.3 Unknown (03/27/23 08:00:00) SARS-CoV-2(COVID-19)mRNA-LNP vac(yep901): 0.5 Unknown (02/19/24 08:00:00) [id number] 12y+ bivalent booster vax: 0.3 mL (06/28/22 15:42:00) tetanus/diphtheria/pertussis, acel(Tdap): 0 Unknown (05/07/12 00:00:00) tetanus-diphtheria toxoids (Td): 0.5 mL (06/28/22 15:42:00) tetanus-diphtheria toxoids (Td): 0 Unknown (06/10/01 07:00:00) zoster vaccine, inactivated: 1 Unknown (02/19/24 08:00:00) zoster vaccine, inactivated: 1 Unknown (10/05/23 08:00:00) Afluria (oldterm): 0.5 mL (03/08/16 16:19:00) Influenza Virus Vaccine (oldterm): 0 Unknown (03/23/20 00:00:00) ? Results Recent Labs BLOOD COUNT & DIFF WBC 5.7 k/mm3 ()?? 04/23/2024 22:22 RBC 4.18 m/mm3 (Low)?? 04/23/2024 22:22 Hgb 13.2 Gm/dL ()?? 04/23/2024 22:22 Hct 38.6 % ()?? 04/23/2024 22:22 MCV 92.3 femtoliters ()?? 04/23/2024 22:22 MCH 31.6 pg ()?? 04/23/2024 22:22 MCHC 34.2 Gm/dL ()?? 04/23/2024 22:22 Platelet Count 282 k/mm3 ()?? 04/23/2024 22:22 RDW-SD 43.1 femtoliters ()?? 04/23/2024 22:22 MPV 9.5 femtoliters ()?? 04/23/2024 22:22 Nucleated RBC (Automated) 0.0 #/100 WBC'S ()?? 04/23/2024 22:22 Abs. NRBC 0.0 k/mm3 ()?? 04/23/2024 22:22 Abs. Neut 2.2 k/mm3 ()?? 04/23/2024 22:22 Abs. Lymph 2.9 k/mm3 ()?? 04/23/2024 22:22 Abs. Yell 0.4 k/mm3 ()?? 04/23/2024 22:22 Abs. Eo 0.1 k/mm3 ()?? 04/23/2024 22:22 Abs. Baso 0.0 k/mm3 ()?? 04/23/2024 22:22 Neut % 39.2 % (Low)?? 04/23/2024 22:22 Lymph % 50.8 % (High)?? 04/23/2024 22:22 Yell % 7.2 % ()?? 04/23/2024 22:22 Eos % 2.1 % ()?? 04/23/2024 22:22 Baso % 0.5 % ()?? 04/23/2024 22:22 Imm Gran 0.2 % ()?? 04/23/2024 22:22 Abs. Imm Gran 0.0 k/mm3 ()?? 04/23/2024 22:22 ?? BLOOD GAS pH, Venous 7.42 ()?? 04/23/2024 22:22 ?? CHEM GENERAL Sodium 143 mmol/L ()?? 04/23/2024 22:22 Potassium 3.4 mmol/L (Low)?? 04/23/2024 22:22 Chloride 106 mmol/L ()?? 04/23/2024 22:22 Bicarbonate Level 26 mmol/L ()?? 04/23/2024 22:22 Anion Gap 11 ()?? 04/23/2024 22:22 Glucose Level 84 mg/dL ()?? 04/23/2024 22:22 Glucose, POC 83 mg/dL ()?? 04/23/2024 22:32 BUN 11 mg/dL ()?? 04/23/2024 22:22 Creatinine-Blood 0.65 mg/dL ()?? 04/23/2024 22:22 Estimated GFR Creatinine 104 ML/MIN/1.73 M2 ()?? 04/23/2024 22:22 Calcium 9.3 mg/dL ()?? 04/23/2024 22:22 Magnesium 2.3 mg/dL ()?? 04/23/2024 22:22 Protein, Total 7.2 Gm/dL ()?? 04/23/2024 22:22 Albumin 4.6 Gm/dL ()?? 04/23/2024 22:22 AG Ratio 1.8 ()?? 04/23/2024 22:22 Alkaline Phosphatase 58 units/L ()?? 04/23/2024 22:22 AST (SGOT) 17 units/L ()?? 04/24/2024 00:24 ALT (SGPT) 26 units/L ()?? 04/24/2024 00:24 Bilirubin, Total 0.4 mg/dL ()?? 04/23/2024 22:22 Lactate 0.9 mmol/L ()?? 04/23/2024 22:22 ?? COAG INR 1.2 (High)?? 04/24/2024 00:24 Protime (PT) 12.6 seconds (High)?? 04/24/2024 00:24 ?? ENDOCRINE/TUMOR MARKER TSH 3.11 uIU/mL ()?? 04/23/2024 22:22 Blood 5 mIU/mL (High)?? 04/23/2024 22:22 ?? HEME OTHER Hold Blue Top SPECIMEN DISCARDED AFTER 4 HOURS. ()?? 04/23/2024 22:22 ?? MISC. CHEMISTRY Hold Gel Top SPECIMEN DISCARDED AFTER 1 WEEK ()?? 04/24/2024 00:24 ?? TOXICOLOGY/TDM Ethanol, Serum or Plasma NONE DETECTED mg/dL (N)?? 04/23/2024 22:22 Salicylate Level <0.3 mg/dL (Low)?? 04/23/2024 22:22 Barbiturate Screen, Urine NONE DETECTED ()?? 04/23/2024 23:23 Cannabinoid Screen, Urine NONE DETECTED ()?? 04/23/2024 23:23 Cocaine Metabolite Screen, Urine NONE DETECTED ()?? 04/23/2024 23:23 Benzodiazepine Screen, Urine POSITIVE (Abnormal)?? 04/23/2024 23:23 Amphetamine Screen, Urine POSITIVE (Abnormal)?? 04/23/2024 23:23 Opiate Screen, Urine NONE DETECTED ()?? 04/23/2024 23:23 Acetaminophen Level 128 mg/L (Critical)?? 04/24/2024 00:24 ?? UA/URINALYSIS Appear/Color, Urine LIGHT YELLOW ()?? 04/23/2024 23:23 Clarity CLEAR ()?? 04/23/2024 23:23 Specific [place], Urine 1.015 ()?? 04/23/2024 23:23 pH, Urine 7.0 ()?? 04/23/2024 23:23 Albumin, Urine NEGATIVE ()?? 04/23/2024 23:23 Glucose, Urine NEGATIVE ()?? 04/23/2024 23:23 Ketones, Urine NEGATIVE ()?? 04/23/2024 23:23 Bilirubin, Urine NEGATIVE ()?? 04/23/2024 23:23 Hemoglobin, Urine NEGATIVE ()?? 04/23/2024 23:23 Nitrite, Urine NEGATIVE ()?? 04/23/2024 23:23 Leukocyte, Urine NEGATIVE ()?? 04/23/2024 23:23 Urobilinogen NORMAL mg/dL ()?? 04/23/2024 23:23 Hold Urine Culture Testing available 48 hours from time of collection. ()?? 04/23/2024 23:23 ?? URINE OTHER Est Creatinine Clearance 82.66 mL/min ()?? 04/23/2024 22:49 ?? VIROLOGY COVID-19 by RT-PCR NEGATIVE ()?? 04/23/2024 23:44 ? Abnormal Labs ?? BLOOD COUNT & DIFF Abs. Imm Gran?0.0 k/mm3 ()?04/23/2024 22:22 Abs. NRBC?0.0 k/mm3 ()?04/23/2024 22:22 Imm Gran?0.2 % ()?04/23/2024 22:22 Lymph %?50.8 % (High)?04/23/2024 22:22 Neut %?39.2 % (Low)?04/23/2024 22:22 Nucleated RBC (Automated)?0.0 #/100 WBC'S ()?04/23/2024 22:22 RBC?4.18 m/mm3 (Low)?04/23/2024 22:22 RDW-SD?43.1 femtoliters ()?04/23/2024 22:22 ?? CHEM GENERAL AG Ratio?1.8 ()?04/23/2024 22:22 Estimated GFR Creatinine?104 ML/MIN/1.73 M2 ()?04/23/2024 22:22 Potassium?3.4 mmol/L (Low)?04/23/2024 22:22 ?? COAG INR?1.2 (High)?04/24/2024 00:24 Protime (PT)?12.6 seconds (High)?04/24/2024 00:24 ?? ENDOCRINE/TUMOR MARKER Blood ?5 mIU/mL (High)?04/23/2024 22:22 ?? HEME OTHER Hold Blue Top?SPECIMEN DISCARDED AFTER 4 HOURS. ()?04/23/2024 22:22 ?? MISC. CHEMISTRY Hold Gel Top?SPECIMEN DISCARDED AFTER 1 WEEK ()?04/24/2024 00:24 ?? TOXICOLOGY/TDM Acetaminophen Level?128 mg/L (Critical)?04/24/2024 00:24 Amphetamine Screen, Urine?POSITIVE (Abnormal)?04/23/2024 23:23 Barbiturate Screen, Urine?NONE DETECTED ()?04/23/2024 23:23 Benzodiazepine Screen, Urine?POSITIVE (Abnormal)?04/23/2024 23:23 Cannabinoid Screen, Urine?NONE DETECTED ()?04/23/2024 23:23 Cocaine Metabolite Screen, Urine?NONE DETECTED () ?04/23/2024 23:23 Ethanol, Serum or Plasma?NONE DETECTED mg/dL (N)?04/23/2024 22:22 Opiate Screen, Urine?NONE DETECTED ()?04/23/2024 23:23 Salicylate Level?<0.3 mg/dL (Low)?04/23/2024 22:22 ?? UA/URINALYSIS Albumin, Urine?NEGATIVE ()?04/23/2024 23:23 Appear/Color, Urine?LIGHT YELLOW ()?04/23/2024 23:23 Bilirubin, Urine?NEGATIVE ()?04/23/2024 23:23 Clarity?CLEAR ()?04/23/2024 23:23 Glucose, Urine?NEGATIVE ()?04/23/2024 23:23 Hemoglobin, Urine?NEGATIVE ()?04/23/2024 23:23 Hold Urine Culture?Testing available 48 hours from time of collection. () ?04/23/2024 23:23 Ketones, Urine?NEGATIVE ()?04/23/2024 23:23 Leukocyte, Urine?NEGATIVE ()?04/23/2024 23:23 Nitrite, Urine?NEGATIVE ()?04/23/2024 23:23 Urobilinogen?NORMAL mg/dL ()?04/23/2024 23:23 ?? VIROLOGY COVID-19 by RT-PCR?NEGATIVE ()?04/23/2024 23:44 ?? Note: Critical results are displayed in red. ? Blood Glucose Trend Glucose Level: 84 mg/dL (04/23/24 22:22:00) Glucose, POC: 83 mg/dL (04/23/24 22:32:00) ? Coagulation Profile INR:??1.2??High (00:24) Protime (PT):??12.6 seconds??High (00:24) ?? LFT Albumin: 4.6 Gm/dL (22:22) Alkaline Phosphatase: 58 units/L (22:22) ALT (SGPT): 26 units/L (00:24) AST (SGOT): 17 units/L (00:24) Bilirubin, Total: 0.4 mg/dL (22:22) Protime (PT):??12.6 seconds??High (00:24) ?? Urinalysis Albumin, Urine: NEGATIVE (23:23) Appear/Color, Urine: LIGHT YELLOW (23:23) Bilirubin, Urine: NEGATIVE (23:23) Clarity: CLEAR (23:23) Est Creatinine Clearance: 82.66 mL/min (22:49) Glucose, Urine: NEGATIVE (23:23) Hemoglobin, Urine: NEGATIVE (23:23) Hold Urine Culture: Testing available 48 hours from time of collection. (23:23) Ketones, Urine: NEGATIVE (23:23) Leukocyte, Urine: NEGATIVE (23:23) Nitrite, Urine: NEGATIVE (23:23) pH, Urine: 7 (23:23) Specific [place], Urine: 1.015 (23:23) Urobilinogen: NORMAL (23:23) ?? Microbiology ?? COVID-19 (Novel Coronavirus), Rapid PCR?? Completed?? Source: Nasal Body Site: Nose Collected Dt/Tm: 04/23/2024 22:10 Last Updated Dt/Tm: 04/24/2024 00:29 ? Blood Gases pH, Venous: 7.42 (22:22) ? EKG study * Event Display: EKG Authored Date: * Event Display: ECG 12-Lead Authored Date: Please click on pdf link to open report * Event Display: ECG 12-Lead Authored Date: Ventricular Rate: 68 BPM Atrial Rate: 68 BPM P-R Interval: 140 ms QRS Duration: 92 ms Q-T Interval: 462 ms QTC Calculation(Bazett): 491 ms P [place]: 48 degrees R [place]: 20 degrees T [place]: 64 degrees Normal sinus rhythm Possible Left atrial enlargement Nonspecific ST abnormality Prolonged QT Abnormal ECG When compared with ECG of 23-APR-2024 21:59, No significant change Confirmed by EDNA BELL ([id number]) on 04/24/2024 7:27:06 AM [place]: EDNA BELL * Event Display: ECG 12-Lead Authored Date: Please click on pdf link to open report * Event Display: ECG 12-Lead Authored Date: Ventricular Rate: 87 BPM Atrial Rate: 87 BPM P-R Interval: 144 ms QRS Duration: 86 ms Q-T Interval: 404 ms QTC Calculation(Bazett): 486 ms P [place]: 53 degrees R [place]: 10 degrees T [place]: 23 degrees Normal sinus rhythm Possible Left atrial enlargement Nonspecific ST and T wave abnormality Prolonged QT Abnormal ECG When compared with ECG of 06-AUG-2023 13:08, [place] interval has increased Nonspecific T wave abnormality now evident in Lateral leads Confirmed by EDNA BELL ([id number]) on 04/24/2024 7:25:47 AM [place]: [facility] Progress note * Valentine Ojeda RN: PERFORM, SIGN, VERIFY Event Display: Progress Note [facility] Authored Date: Patient: RAHUL ALCOCER Age: 48 years Sex: Female : 1975 Associated Diagnoses: None Author: Valentine Ojeda RN Findings Problem Related to Alteration in Psychosocial : Alteration in Psychosocial Function/new 04/27/2024 10:00 EST Alteration in Psychosocial Related to Suicidal Goals & Outcomes, Psychosocial Psychosocial support will be provided to Pt/S.O. as needed, Pt/caregiver will participate in coping skill counseling Interventions, Psychosocial Assess psychosocial needs, Assess readiness to learn needed lifestyle changes, Assess/monitor level of consciousness, Evaluate resources & support system available to pt, Offer support; discuss coping strategies, Provide a calm, supportive environment, Provide chances to express concerns/emotions/expectations, Provide info on community resources for education, support, Provide information about illness and recovery, Provide verbal limits if pt's behavior escalates, Initiate constant woodworking shop laborer while pt is actively suicidal, Assess environment for safety, Assess pt's suicidal ideation, Monitor effectiveness of anti-depressant medication BH Goals/Interventions, Psychosocial Yes Psychosocial, Problem Start 04/25/2024 1:55 Reviewed Plan with, Psychosocial Patient Patient Progression, Psychosocial Pt progressing according to plan . Narrative/Incidental AOx4, denies pain. Reporting anxiety, PRN librium administered as ordered. Ambulating independentlyto bathroom, steady gait. Denies suicidal ideation at this time. Suicide precautions maintained, constant woodworking shop laborer at bedside for safety. Plan for transfer to MHU today, patient agreeable to plan.. * Danette King RN: PERFORM, SIGN, VERIFY Event Display: Progress Note Hospital Authored Date: [id number] Patient: RAHUL ALCOCER Age: 48 years Sex: Female : 1975 Associated Diagnoses: None Author: Danette King RN Findings Problem Related to Alteration in Psychosocial : Alteration in Psychosocial Function/new 04/26/2024 20:00 EST Alteration in Psychosocial Related to Suicidal Goals & Outcomes, Psychosocial Psychosocial support will be provided to Pt/S.O. as needed, Pt/caregiver will participate in coping skill counseling Interventions, Psychosocial Assess psychosocial needs, Assess readiness to learn needed lifestyle changes, Assess/monitor level of consciousness, Evaluate resources & support system available to pt, Offer support; discuss coping strategies, Provide a calm, supportive environment, Provide chances to express concerns/emotions/expectations, Provide verbal limits if pt's behavior escalates BH Goals/Interventions, Psychosocial Yes Psychosocial, Problem Start 04/25/2024 1:55 Reviewed Plan with, Psychosocial Patient Patient Progression, Psychosocial Pt progressing according to plan . Nursing Data Activity Data : Activity Data 04/26/2024 20:00 EST Activity Status ADL Ambulating in room, Back to bed, Bathroom privileges Activity Assistance Independent Ambulation Patient Effort Good Ambulation Patient Response Tolerated well Ambulatory devices needed None Daily Mobility Score 8 - Walks 250 feet or more . Cardiac Data. : Cardiac Data. 04/26/2024 21:11 EST Cardiovascular Symptoms None Nail Bed Color, Fingers [place] Nail Bed Color, Toes [place] Clubbing Present No Skin Temperature Upper Extremities Warm Skin Temperature Lower Extremities Warm Capillary Refill < 3 seconds Radial Pulse, Left Normal Radial Pulse, Right Normal Dorsalis Pedis Pulse, Left Normal Dorsalis Pedis Pulse, Right Normal child monitor No Cardiovascular WNL except . Gastrointestinal Data. : Gastrointestinal Data. 04/26/2024 21:11 EST Gastrointestinal Symptoms None Abdomen Soft, Non-tender Bowel Sounds LUQ Present Bowel Sounds RUQ Present Bowel Sounds LLQ Present Bowel Sounds RLQ Present Last Bowel Movement 04/26/2024 GI WNL except . Integumentary Data. : Integumentary Data. 04/26/2024 21:19 EST Skin Color Normal for ethnicity Skin Description Dry Skin Temperature Warm Skin Integrity Intact Skin Turgor Elastic Mucous Membrane Color [place] Mucous Membrane Description Moist Integumentary WNL 04/26/2024 21:11 EST Sensory Perception No impairment Activity Walks frequently Mobility No limitations . Musculoskeletal Data. : Musculoskeletal Data. 04/26/2024 21:11 EST Musculoskeletal Symptoms None Musculoskeletal WNL except . Neurological Data. : Neurological Data. 04/26/2024 21:11 EST Tongue Disposition Midline Neurological Symptoms None Level of Consciousness Full Consciousness Orientated to person, place, time Person, Place, Time, Event Hallucinations None Facial Symmetry Intact Characteristics of Speech Clear and normal Swallowing Difficulty None Strength LUE 5-Active movement against gravity & full resistance Strength RUE 5-Active movement against gravity & full resistance Strength LLE 5-Active movement against gravity & full resistance Strength RLE 5-Active movement against gravity & full resistance Tone LUE Normal Tone RUE Normal Tone LLE Normal Tone RLE Normal Sensation LUE Intact Sensation RUE Intact Sensation LLE Intact Sensation RLE Intact Movement LUE Spontaneous Movement RUE Spontaneous Movement LLE Spontaneous Movement RLE Spontaneous Gait No disturbance Tremors None Response Eye Opening Spontaneously Motor Response-Adult Obeys commands Verbal Response-Adult Oriented and converses Bel[place]an Coma Score 15 Neuro WNL except Eyes and Movements Conjugate gaze: Move in same direction at same speed Memory Intact Swallow - Neuro Normal . Respiratory/Pulmonary Data. : Respiratory/Pulmonary Data. 04/26/2024 21:11 EST Respiratory Symptoms None Respiratory effort Unlabored Chest expansion Symmetrical Accessory Muscles use No Upper Airway Clear Cough No cough Respiratory pattern Regular Left Upper Lobe Breath Sounds Clear Right Upper Lobe Breath Sounds Clear Right Middle Lobe Breath Sounds Clear Left Lower Lobe Breath Sounds Clear Right Lower Lobe Breath Sounds Clear Respiratory distress None Respiratory Treatment(s) Cough and deep breathe Respiratory WNL except . Vital Signs : VITAL SIGNS SECTION 04/26/2024 20:03 EST Temperature 98.0 DegF Temperature Route Oral Pulse Rate 70 bpm Respiratory Rate 16 br/min Systolic Blood Pressure 101 mm Hg Diastolic Blood Pressure 68 mm Hg Blood pressure sites Arm, right Mean Arterial Pressure 79 mm Hg Pulse Pressure 33 mm Hg Oxygen Saturation 98 % Mode of Delivery (Oxygen) Room air . Narrative/Incidental Patient is alert and oriented.Patient denies suicidal ideation at this time.One to One supervision maintained as ordered.Patient denies pain,discomfort at this time.Ativan given as ordered,per patient's request,for sleep. Patient is currently resting in bed,eyes closed,breathing even and unlabored.VSS.See detailed physical assessment above.. * Harjinder Ortega MD: PERFORM Event Display: Progress Note Hospital Authored Date: Patient: ??RAHUL ALCOCER ? Age:??48 Years?Sex:??Female?:??1975?? Subjective No acute events.?? Awaiting psychiatric bed.?? Her main complaint at this time is of headache. ??Nosignificant improvement with NSAIDs or use of Toradol. Review of Systems A full review of systems was completed and is otherwise negative except as mentioned in history of present illness. Allergies Allergies ?(Active and Proposed Allergies Only) sulfa drugs? (Severity: Unknown severity, Onset: Unknown) ?Reactions: Rash ? Objective Measurements?? Height: 158 cm (04/26/24) Weight: 52.3 kg (04/24/24) Dry Weight: 52.3 kg (04/24/24) Body Mass Index: 20.95 kg/m2 (04/24/24) ? Vital Signs?? Temperature: 98 DegF (04/26/24 11:24:00) Temperature Route: Oral (04/26/24 11:24:00) Pulse Rate: 69 bpm (04/26/24 11:24:00) Respiratory Rate: 18 br/min (04/26/24 12:32:00) Systolic Blood Pressure: 127 mm Hg (04/26/24 11:24:00) Diastolic Blood Pressure: 75 mm Hg (04/26/24 11:24:00) Blood pressure sites: Arm, right (04/26/24 11:24:00) Mean Arterial Pressure: 92 mm Hg (04/26/24 11:24:00) Pulse Pressure: 52 mm Hg (04/26/24 11:24:00) Oxygen Saturation: 98 % (04/26/24 11:24:00) Mode of Delivery (Oxygen): Room air (04/26/24 11:24:00) Early Warning Score: 0 (04/26/24 12:33:50) ? Intake/Output? 04/24 02:29 04/26 07:00 04/25 07:00 04/24 07:00 04/23 07:00 ?? 04/26 12:41 04/26 12:41 04/26 06:59 04/25 06:59 04/24 06:59 Intake ? 2360 ?0 ?0 ? 1601.7 ?758.3 Output ?0 ?0 ?0 ?0 ?0 Net Total ? 2360 ?0 ?0 ? 1601.7 ?758.3 ? Urine Count ?4 ?0 ?2 ?2 ?0 ? Physical Exam Alert and orient x 3 Lungs clear to auscultation S1-S2 normal sinus rhythm Abdomen soft, nontender bowel sounds positive in all quadrant Normal mood and affect at this time Results Recent Labs No labs resulted between 04/25/2024 00:00 and 04/26/2024 12:41? Assessment/Plan Chief Complaint: pt od on unknown amount and unknown medication, states called ems, states pt took xanax. pt states took oxy. ??ems said pt lost job today, wrote si notes. [place] ?? Diagnoses Acetaminophen overdose ??(T39.1X1A) Hypertension ??(I10) Substance abuse ??(F19.10) Suicidal ideation ??(R45.851) ?? Assessment:??BRIQUETTING MACHINE OPERATOR has evaluated the patient and she will have an involuntary??admission with??an ongoing bed search now at this time.??Section 12 form has been completed and signed. She has a one-to-one at bedside Trial of Fioricet??and??sumatriptan as needed. Continue with BuSpar, Librium and clonidine for history of anxiety ?? VTE low risk Code: Full ?? I spent a total of 35 minutes today reviewing the chart/medical records, speaking with the patient,formulating and discussing the treatment plan,??and documenting the findings and encounter. ? Note * Valentine Ojeda RN: PERFORM Event Display: Discharge/Transfer Note Hospital Authored Date: [id number] Nursing Discharge Note Entered On: 04/27/2024 11:29 EST Performed On: 04/27/2024 11:28 EST by Valentine Ojeda RN Nursing Discharge Note 2 Discharge Time : 04/27/2024 11:28 EST Discharge Level of Care at Discharge : Psychiatric Facility/Unit Patient Left Unit Via : Ambulatory Patient Accompanied Off Unit with : Responsible adult DC Instructions Provided & Signed by Pt : No Patient Understands D/C Instructions : Yes Patient Instructions Discharge Signed : No Instructions for Discharge Comments : d/c to MHU, nurse to nurse called to receiving unit Did Pt have Specialty Bed or Wound Vac : No Valentine Ojeda RN - 04/27/2024 11:28 EST * Harjinder Ortega MD: PERFORM Event Display: Discharge/Transfer Note Hospital Authored Date: [id number] Patient: ??RAHUL ALCOCER ? Age:??48 Years?Sex:??Female?:??1975?? Patient Information Discharge Location: [facility] Primary Care Physician: Freda Farley NP Admit Date/Time: 04/24/2024 02:29 Discharge Disposition Discharge Disposition: ?? Discharge Diagnosis Acetaminophen overdose (T39.1X1A) Suicidal ideation (R45.851) Hypertension (I10) Substance abuse (F19.10) _ Discharge Medications Acetaminophen/Butalbital/Caffeine (acetaminophen/butalbital/caffeine 325 mg-50 mg-40 mg oral tablet)?See Instructions?as needed?Pain , Severe?Take 1 Tablet By Mouth Once Daily PRN for severe migrain. Use sparingly. Alprazolam (Xanax 1 mg oral tablet)?1?tab(s)?1?Milligram?By Mouth?Daily?prn?as needed?as needed for anxiety?0.5?0.5 BusPIRone (busPIRone 10 mg oral tablet)?take 1 tablet by mouth twice a day Diltiazem (dilTIAZem 120 mg/24 hours oral tablet, extended release)?1?tab(s)?By Mouth?Daily Escitalopram (Lexapro 10 mg oral tablet)?1?tab(s)?10?Milligram?By Mouth?Daily?2?20?1?10 Esomeprazole (NexIUM 24HR 20 mg oral delayed release tablet)?1?tab(s)?20?Milligram?By Mouth?Daily in AM Estradiol (estradiol 0.05 mg/24 hours weekly transdermal film, extended release)?1?patch(es)?Topically?Every week lisdexamfetamine (Vyvanse 50 mg oral capsule)?take 1 capsule by mouth every morning?40?Milligram?By Mouth?Daily in AM ? Allergies Allergies ?(Active and Proposed Allergies Only) sulfa drugs? (Severity: Unknown severity, Onset: Unknown) ?Reactions: Rash ? Future Appointments Saturday 1:30 PM EST ?? With: Markie Goncalves Where: [facility] [address] [place] [address]- Status: Pending Saturday 9:40 AM EST ?? With: Amy ZELAYA, Marlon Escobar Where: [facility] [address] [place] [address]- Status: Pending Objective Assessment and Plan Assessment:??48-year-old female??with a past history of??substance use??presented to the emergency room after??toxic ingestion of??medication with??attempted suicide.??The patient??was found to have ingested excessive Tylenol PM.??Poison control was contacted.??The patient was treated with an acetylcysteine to help improve and remove??acetaminophen levels.??There were no complications with her treatment and no??signs??to suggest??progression??to liver failure. [facility] has evaluated the patient and she will have an involuntary??admission with??an ongoing bed search now at this time.??Patient is medically stable at this time??and has been cleared??to be transferred to the mental health unit for further care. ? Measurements?? Height: 158 cm (04/27/24) Weight: 52.3 kg (04/24/24) Dry Weight: 52.3 kg (04/24/24) Body Mass Index: 20.95 kg/m2 (04/24/24) ? Vital Signs?? Temperature: 98 DegF (04/27/24 07:45:00) Temperature Route: Oral (04/27/24 07:45:00) Pulse Rate: 68 bpm (04/27/24 10:13:00) Respiratory Rate: 16 br/min (04/27/24 07:45:00) Systolic Blood Pressure: 109 mm Hg (04/27/24 10:13:00) Diastolic Blood Pressure: 63 mm Hg (04/27/24 10:13:00) Blood pressure sites: Arm, right (04/27/24 07:45:00) Mean Arterial Pressure: 78 mm Hg (04/27/24 07:45:00) Pulse Pressure: 46 mm Hg (04/27/24 07:45:00) Oxygen Saturation: 98 % (04/27/24 07:45:00) Mode of Delivery (Oxygen): Room air (04/27/24 07:45:00) Early Warning Score: 0 (04/27/24 10:26:35) ? . Physical Exam Constitutional: Alert, in no distress. Mental Status: Oriented to person, place and time. Respiratory: Clear to auscultation. No wheezing, rales or rhonchi. Cardiovascular: S1 S2 regular. No murmurs, rubs or gallops. Gastrointestinal: Abdomen soft, non-tender, non-distended. Normal bowel sounds. No pulsatile mass. No hepatosplenomegaly. Genitourinary: No costovertebral angle tenderness. ?? Pending Results Add On Lab Order ordered on 04/23/2024 Add On Lab Order ordered on 04/24/2024 Post Discharge Care Diet: ??Regular Diet ?? Discharge ?04/27/24 10:25:00 EST ?Order Comment:?? Home Health Face to Face ^HomeHealthFTF Results Discharge Labs BLOOD COUNT & DIFF WBC 6.4 k/mm3 ()?? 04/24/2024 06:23 RBC 4.30 m/mm3 ()?? 04/24/2024 06:23 Hgb 13.7 Gm/dL ()?? 04/24/2024 06:23 Hct 39.6 % ()?? 04/24/2024 06:23 MCV 92.1 femtoliters ()?? 04/24/2024 06:23 MCH 31.9 pg ()?? 04/24/2024 06:23 MCHC 34.6 Gm/dL ()?? 04/24/2024 06:23 Platelet Count 281 k/mm3 ()?? 04/24/2024 06:23 RDW-SD 43.0 femtoliters ()?? 04/24/2024 06:23 MPV 9.6 femtoliters ()?? 04/24/2024 06:23 Nucleated RBC (Automated) 0.0 #/100 WBC'S ()?? 04/24/2024 06:23 Abs. NRBC 0.0 k/mm3 ()?? 04/24/2024 06:23 Abs. Neut 4.8 k/mm3 ()?? 04/24/2024 06:23 Abs. Lymph 1.3 k/mm3 ()?? 04/24/2024 06:23 Abs. Yell 0.3 k/mm3 (Low)?? 04/24/2024 06:23 Abs. Eo 0.0 k/mm3 ()?? 04/24/2024 06:23 Abs. Baso 0.0 k/mm3 ()?? 04/24/2024 06:23 Neut % 75.3 % ()?? 04/24/2024 06:23 Lymph % 19.7 % ()?? 04/24/2024 06:23 Yell % 4.1 % (Low)?? 04/24/2024 06:23 Eos % 0.3 % ()?? 04/24/2024 06:23 Baso % 0.3 % ()?? 04/24/2024 06:23 Imm Gran 0.3 % ()?? 04/24/2024 06:23 Abs. Imm Gran 0.0 k/mm3 ()?? 04/24/2024 06:23 ?? BLOOD GAS pH, Venous 7.42 ()?? 04/23/2024 22:22 ? CHEM GENERAL Sodium 137 mmol/L ()?? 04/24/2024 06:23 Potassium 3.4 mmol/L (Low)?? 04/24/2024 06:23 Chloride 99 mmol/L ()?? 04/24/2024 06:23 Bicarbonate Level 22 mmol/L ()?? 04/24/2024 06:23 Anion Gap 16 ()?? 04/24/2024 06:23 Glucose Level 154 mg/dL (High)?? 04/24/2024 06:23 Glucose, POC 83 mg/dL ()?? 04/23/2024 22:32 BUN 9 mg/dL ()?? 04/24/2024 06:23 Creatinine-Blood 0.59 mg/dL ()?? 04/24/2024 06:23 Estimated GFR Creatinine 107 ML/MIN/1.73 M2 ()?? 04/24/2024 06:23 Calcium 9.4 mg/dL ()?? 04/24/2024 06:23 Phosphorus 3.4 mg/dL ()?? 04/24/2024 06:23 Magnesium 2.2 mg/dL ()?? 04/24/2024 06:23 Protein, Total 6.4 Gm/dL ()?? 04/24/2024 20:13 Albumin 4.2 Gm/dL ()?? 04/24/2024 20:13 AG Ratio 1.8 ()?? 04/23/2024 22:22 Alkaline Phosphatase 52 units/L ()?? 04/24/2024 20:13 AST (SGOT) 16 units/L ()?? 04/24/2024 20:13 ALT (SGPT) 24 units/L ()?? 04/24/2024 20:13 Bilirubin, Total 0.3 mg/dL ()?? 04/24/2024 20:13 Bilirubin, Direct 0.1 mg/dL ()?? 04/24/2024 20:13 Bilirubin, Indirect 0.2 mg/dL ()?? 04/24/2024 20:13 Lactate 0.9 mmol/L ()?? 04/23/2024 22:22 ? COAG INR 1.2 (High)?? 04/24/2024 21:59 Protime (PT) 13.0 seconds (High)?? 04/24/2024 21:59 ?? ENDOCRINE/TUMOR MARKER TSH 3.11 uIU/mL ()?? 04/23/2024 22:22 Blood 5 mIU/mL (High)?? 04/23/2024 22:22 ?? HEME OTHER Hold Blue Top SPECIMEN DISCARDED AFTER 4 HOURS. ()?? 04/23/2024 22:22 ? MISC. CHEMISTRY Hold Gel Top SPECIMEN DISCARDED AFTER 1 WEEK ()?? 04/24/2024 21:59 ? TOXICOLOGY/TDM Ethanol, Serum or Plasma NONE DETECTED mg/dL (N)?? 04/23/2024 22:22 Salicylate Level <0.3 mg/dL (Low)?? 04/23/2024 22:22 Barbiturate Screen, Urine NONE DETECTED ()?? 04/23/2024 23:23 Cannabinoid Screen, Urine NONE DETECTED ()?? 04/23/2024 23:23 Cocaine Metabolite Screen, Urine NONE DETECTED ()?? 04/23/2024 23:23 Benzodiazepine Screen, Urine POSITIVE (Abnormal)?? 04/23/2024 23:23 Amphetamine Screen, Urine POSITIVE (Abnormal)?? 04/23/2024 23:23 Opiate Screen, Urine NONE DETECTED ()?? 04/23/2024 23:23 Acetaminophen Level <5 mg/L (Low)?? 04/24/2024 20:13 ? UA/URINALYSIS Appear/Color, Urine LIGHT YELLOW ()?? 04/23/2024 23:23 Clarity CLEAR ()?? 04/23/2024 23:23 Specific [place], Urine 1.015 ()?? 04/23/2024 23:23 pH, Urine 7.0 ()?? 04/23/2024 23:23 Albumin, Urine NEGATIVE ()?? 04/23/2024 23:23 Glucose, Urine NEGATIVE ()?? 04/23/2024 23:23 Ketones, Urine NEGATIVE ()?? 04/23/2024 23:23 Bilirubin, Urine NEGATIVE ()?? 04/23/2024 23:23 Hemoglobin, Urine NEGATIVE ()?? 04/23/2024 23:23 Nitrite, Urine NEGATIVE ()?? 04/23/2024 23:23 Leukocyte, Urine NEGATIVE ()?? 04/23/2024 23:23 Urobilinogen NORMAL mg/dL ()?? 04/23/2024 23:23 Hold Urine Culture Testing available 48 hours from time of collection. ()?? 04/23/2024 23:23 ? URINE OTHER Est Creatinine Clearance 91.07 mL/min ()?? 04/24/2024 06:52 ? VIROLOGY COVID-19 by RT-PCR NEGATIVE ()?? 04/23/2024 23:44 ? Microbiology ?? COVID-19 (Novel Coronavirus), Rapid PCR?? Completed?? Source: Nasal Body Site: Nose Collected Dt/Tm: 04/23/2024 22:10 Last Updated Dt/Tm: 04/24/2024 00:29 ? 35 minutes spent on discharge * Valentine Ojeda RN: PERFORM Event Display: Patient Education/Instruction Authored Date: [id number] Inpatient Adult Discharge Instructions. [address] [place] [address] Name: RAHUL ALCOCER : 1975?? Visit: 04/24/2024 02:29?? Current Date: 04/27/2024 10:46 ?? Account: [id number]?? Inpatient Adult Discharge Instructions We would like [...] and their families. Surveys are administered by [employer] ?? If further treatment with your primary care physician or another doctor is recommended, it is important for you to keep the appointment. Call your primary care physician or return to the Emergency Department immediately if your condition worsens, fails to improve, or new symptoms develop. If you need to find a doctor, you can call [facility] Link for a referral at [phone] or toll free at [phone] or log in to [email or web address].. ?? [facility], in keeping with [facility] guidance, no longer requires face masks [...] a health care ani of your choosing. [employer] is a website that allows you to securely view your medical information including your hospital discharge summary, office visit summaries, medications and follow-up visits. You can also request appointments, renew medications, and request access to your medical information using a health care ani of your choosing, or just ask a question. You can enroll at [email or web address] or register during your next office visit. You have been discharged from [facility], Patient Care Unit: [id number]??. If you have any questions regarding these instructions, including results of studies pending, afteryou leave, please call us and we will be happy to assist you 31/12. [facility] Your Care Team Attending Physician Harjinder Ortega MD?? Consulting Providers Harjinder Ortega MD?? Discharging Providers Harjinder Ortega MD Reason for Your Visit pt od on unknown amount and unknown medication, states called ems, states pt took xanax. ptstates took oxy. ??ems said pt lost job today, wrote si notes. em[place]?? Tests Performed Below is a partial list of the tests performed during your hospitalization. You may have had other tests and procedures not included in this list. Please discuss all test results with your provider. Acetaminophen Level Albumin Level Alcohol Level Alk Phos ALT Amphetamine Urine Screen AST Barbiturate Urine Screen Benzodiazepine Urine Screen Bilirubin Total + Direct BUN Calcium Level Cannabinoid Urine Screen CBC w/ Differential Cocaine Urine Screen Comprehensive Metabolic Panel COVID-19 (Novel Coronavirus), Rapid PCR Creatinine Electrolytes Glucose Level GLUCOSE POC HOLD BLUE TUBE HOLD GEL TUBE INR Lactic Acid Level LFT's Magnesium Level Opiate Screen Urine pH Venous Phosphorus Level Serum Quantitative PT (INR) SALICYLATE Total Protein TSH with T4 Reflex (Adults Only) Urinalysis w/hold for Urine Culture ALT?? AST?? Acetaminophen Level?? Add On Lab Order (Lab Add On Order)?? Albumin Level?? Alk Phos?? Amphetamine Urine Screen?? BUN?? Barbiturate Urine Screen?? Benzodiazepine Urine Screen?? Beta HCG Serum (Females Only) ( Serum Quantitative)?? Bilirubin Total + Direct?? CBC w/ Differential?? COVID-19 (Novel Coronavirus), Rapid PCR?? Calcium Level?? Cannabinoid Urine Screen?? Cocaine Urine Screen?? Comprehensive Metabolic Panel?? Creatinine?? Electrolytes?? Ethanol Level (Alcohol Level)?? Gel Top Hold Tube (HOLD GEL TUBE)?? Glucose Level?? Glucose POC?? Hepatic Function Panel (LFT's)?? Hold Blue Top Tube (HOLD BLUE TUBE)?? INR?? Lactic Acid Level?? Magnesium Level?? Opiate Screen Urine?? Phosphorus Level?? Salicylate Level (SALICYLATE)?? TSH with T4 Reflex (Adults Only)?? Total Protein?? Urinalysis w/hold for Urine Culture?? pH Venous?? Primary Care Provider Miguelito HERNANDEZ, Freda? Advance Directive Health Care Proxy on File Yes - Health Care Proxy Discharge Vitals Temperature: 98 DegF Height: 158 cm Pulse Rate: 68 bpm Weight: 52.3 kg Respiratory Rate: 16 br/min Body Mass Index: 20.95 kg/m2 Systolic Blood Pressure: 109 mm Hg Body surface area: 1.52 Diastolic Blood Pressure: 63 mm Hg ?? Oxygen Saturation: 98 % ?? Studies Pending All studies ordered during this hospital stay have been completed unless listed below. Please discuss all pending results with your provider listed above in these instructions. ?? Add On Lab Order (Lab Add On Order)?? What to do next Instructions From Your Doctor ?? Orders??:Regular Diet? 04/27/24 10:25:00 EST?? Scheduled Follow-Up Appointments Saturday 1:30 PM EST ?? With: Markie Goncalves [facility] [address] [address]- Status: Pending Saturday 9:40 AM EST ?? With: Marlon Reyes MD Where: [facility] [address] [address]- Status: Pending Discharge Medications ERICKRAHUL :1975 Visit Date:04/24/2024 Medications: Please continue your medications until treatment is completed or stopped by your provider. Medications not listed below should be discontinued. Discuss any questions related to medications with your provider. What How Much When Instructions Next Dose Unchanged Acetaminophen/ Butalbital/ Caffeine (acetaminophen/ butalbital/ caffeine 325 mg-50 mg-40 mg oral tablet) See instructions Take 1 Tablet By Mouth Once Daily PRN for severe migrain. Use sparingly., As needed for Pain , Severe ?? PRN - last given 04/26 at 1232 Unchanged Alprazolam (Xanax 1 mg oral tablet) 0.5 tab(s) Oral Daily as needed for as needed for anxiety prn ?? PRN Unchanged BusPIRone (busPIRone 10 mg oral tablet) take 1 tablet by mouth twice a day ?? tonight at 2100 Unchanged Diltiazem (dilTIAZem 120 mg/ 24 hours oral tablet, extended release) 1 tab(s) Oral Daily tomorrow at 0900 Unchanged Escitalopram (Lexapro 10 mg oral tablet) 1 tab(s) Oral Daily tomorrow at 0900 Unchanged Esomeprazole (NexIUM 24HR 20 mg oral delayed release tablet) 1 tab(s) Oral Daily in the morning tomorrow at 0900 Unchanged Estradiol (estradiol 0.05 mg/ 24 hours weekly transdermal film, extended release) 1 patch(es) Topically Every week weekly, follow usual schedule Unchanged lisdexamfetamine (Vyvanse 50 mg oral capsule) 40 Milligram Oral Daily in the morning take 1 capsule by mouth every morning ?? tomorrow at 0900 ?? What How Much When Why Comments Stop Taking Fluconazole (fluconazole 150 mg oral tablet) 1 tab(s) Oral Once epeat dose if still having symptoms in 72 hours ?? Stop Taking Lactobacillus Acidophilus (lactobacillus acidophilus oral capsule) 1 capsule Oral Twice a day Duration: 10 Days Stop Taking Lidocaine Topical (lidocaine 5% rectal cream) See instructions External hemorrhoid apply 3 times a day ?? Stop Taking Lisinopril (lisinopril 10 mg oral tablet) 1 tab(s) Oral Daily Stop Taking Miscellaneous Rx (Diltiazem HCl 2%/ Lidoncaine 1.5% rectal ointment) See instructions Apply a pea sized amount to anus twice daily ?? Stop Taking Omeprazole (omeprazole 20 mg oral enteric coated capsule) 1 capsule Oral Daily Stop Taking Ropinirole (Requip) 0.25 Milligram Oral Daily Prescription Given During Visit No new medications prescribed at time of discharge.?? Laboratory Results Below is a partial list of the most recent Laboratory test results done prior to this discharge. You may have had other tests and procedures not included in this list. Please discuss all test resultswith your provider. Est Creatinine Clearance - 91.07 mL/min (04/24/2024) Acetaminophen Level (04/24/2024) ? ?Acetaminophen Level - <5 mg/L Albumin Level (04/24/2024) ???Albumin - 4.4 Gm/dL Alcohol Level (04/23/2024) ???Ethanol, Serum or Plasma - NONE DETECTED Alk Phos (04/24/2024) ???Alkaline Phosphatase - 56 units/L ALT (04/24/2024) ???ALT (SGPT) - 26 units/L Amphetamine Urine Screen (04/23/2024) ???Amphetamine Screen, Urine - POSITIVE AST (04/24/2024) ???AST (SGOT) - 15 units/L Barbiturate Urine Screen (04/23/2024) ???Barbiturate Screen, Urine - NONE DETECTED Benzodiazepine Urine Screen (04/23/2024) ???Benzodiazepine Screen, Urine - POSITIVE Bilirubin Total + Direct (04/24/2024) ???Bilirubin, Total - 0.3 mg/dL???Bilirubin, Direct - 0.1 mg/dL???Bilirubin, Indirect - 0.2 mg/dL BUN (04/24/2024) ???BUN - 9 mg/dL Calcium Level (04/24/2024) ???Calcium - 9.4 mg/dL Cannabinoid Urine Screen (04/23/2024) ???Cannabinoid Screen, Urine - NONE DETECTED CBC w/ Differential (04/24/2024) ???WBC - 6.4 k/mm3???RBC - 4.30 m/mm3???Hgb - 13.7 Gm/dL???Hct - 39.6 %???MCV - 92.1 femtoliters???MCH - 31.9 pg???MCHC - 34.6 Gm/dL???Platelet Count - 281 k/mm3???RDW-SD - 43.0 femtoliters???MPV - 9.6 femtoliters???Nucleated RBC (Automated) - 0.0 #/100 WBC'S???Abs. NRBC - 0.0 k/mm3???Abs. Neut - 4.8 k/mm3???Abs. Lymph - 1.3 k/mm3???Abs. Yell - 0.3 k/mm3???Abs. Eo - 0.0 k/mm3???Abs. Baso - 0.0 k/mm3???Neut % - 75.3 %???Lymph % - 19.7 %???Yell % - 4.1 %???Eos % - 0.3 %???Baso % - 0.3 %???Imm Gran - 0.3 %???Abs. Imm Gran - 0.0 k/mm3 Cocaine Urine Screen (04/23/2024) ???Cocaine Metabolite Screen, Urine - NONE DETECTED Comprehensive Metabolic Panel (04/23/2024) ???Sodium - 143 mmol/L???Potassium - 3.4 mmol/L???Chloride - 106 mmol/L???Bicarbonate Level - 26 mmol/L???Anion Gap - 11???Glucose Level - 84 mg/dL???BUN - 11 mg/dL???Creatinine-Blood - 0.65 mg/dL???Estimated GFR Creatinine - 104 ML/MIN/1.73 M2???Calcium - 9.3 mg/dL???Protein, Total - 7.2 Gm/dL???Albumin - 4.6 Gm/dL???AG Ratio - 1.8???Alkaline Phosphatase - 58 units/L???AST (SGOT) - 18 units/L???ALT (SGPT) - 28 units/L???Bilirubin, Total - 0.4 mg/dL COVID-19 (Novel Coronavirus), Rapid PCR (04/23/2024) ???COVID-19 by RT-PCR - NEGATIVE Creatinine (04/24/2024) ???Creatinine-Blood - 0.59 mg/dL???Estimated GFR Creatinine - 107 ML/MIN/1.73 M2 Electrolytes (04/24/2024) ???Sodium - 137 mmol/L???Potassium - 3.4 mmol/L???Chloride - 99 mmol/L???Bicarbonate Level - 22 mmol/L???Anion Gap - 16 Glucose Level (04/24/2024) ???Glucose Level - 154 mg/dL GLUCOSE POC (04/23/2024) ???Glucose, POC - 83 mg/dL HOLD BLUE TUBE (04/23/2024) ???Hold Blue Top - SPECIMEN DISCARDED AFTER 4 HOURS. HOLD GEL TUBE (04/24/2024) ???Hold Gel Top - SPECIMEN DISCARDED AFTER 1 WEEK INR (04/24/2024) ???INR - 1.2???Protime (PT) - 13.0 seconds Lactic Acid Level (04/23/2024) ???Lactate - 0.9 mmol/L LFT's (04/24/2024) ???Protein, Total - 6.4 Gm/dL???Albumin - 4.2 Gm/dL???Alkaline Phosphatase - 52 units/L???AST (SGOT) - 16 units/L???ALT (SGPT) - 24 units/L???Bilirubin, Total - 0.3 mg/dL???Bilirubin, Direct - 0.1 mg/dL???Bilirubin, Indirect - 0.2 mg/dL Magnesium Level (04/24/2024) ???Magnesium - 2.2 mg/dL Opiate Screen Urine (04/23/2024) ???Opiate Screen, Urine - NONE DETECTED pH Venous (04/23/2024) ???pH, Venous - 7.42 Phosphorus Level (04/24/2024) ???Phosphorus - 3.4 mg/dL Serum Quantitative (04/23/2024) ???Blood - 5 mIU/mL PT (INR) (04/24/2024) ???INR - 1.3???Protime (PT) - 13.3 seconds SALICYLATE (04/23/2024) ? ?Salicylate Level - <0.3 mg/dL Total Protein (04/24/2024) ???Protein, Total - 7.0 Gm/dL TSH with T4 Reflex (Adults Only) (04/23/2024) ???TSH - 3.11 uIU/mL Urinalysis w/hold for Urine Culture (04/23/2024) ???Appear/Color, Urine - LIGHT YELLOW???Clarity - CLEAR???Specific [place], Urine - 1.015???pH, Urine - 7.0???Albumin, Urine - NEGATIVE???Glucose, Urine - NEGATIVE???Ketones, Urine - NEGATIVE???Bilirubin, Urine - NEGATIVE???Hemoglobin, Urine - NEGATIVE???Nitrite, Urine - NEGATIVE???Leukocyte, Urine- NEGATIVE???Urobilinogen - NORMAL???Hold Urine Culture - Testing available 48 hours from time of collection. You will be contacted within 72 hours with your results. Allergies (NKA means No Known Allergies) sulfa [...] Belongings I fully understand and agree that [facility] accepts no responsibility for all my personal [...] to send valuables and belongings home. ?? Disposition of Belongings: Safe/envelope receipt given to family Possessions released to: Security gave wallet, cell phone, smart watch to Puma Alcocer- Date for Pt to Sign Valuables/Belongings: 04/24/24 04:33:00 ?? Other Discharge Information ? Pulmonary Rehab Status?? Pulmonary Rehab Discharge Status?? Respiratory Rate: 16 br/min ? Common Emergency Awareness Tips IS IT [...] are strongly encouraged to quit. Please call [facility] Link at [phone] or [phone] ([phone]) or log in to [email or web address] for referrals to smoking cessation programs. ?? 305 Suicide & Crisis Lifeline is available 31/12 if you or someone you know needs to find a reason to keep living. By calling 585 you'll be connected to a skilled, trained counselor at a crisis center in your area. INPATIENT DISCHARGE INSTRUCTIONS SIGNATURE PAGE ERICK RAHUL Location:[facility] Registration Date and Time:04/24/2024 02:29 EST Primary Care Physician: Freda Farley NP, Attending Physician: Harjinder Ortega MD, I RAHUL ALCOCER, have received the above patient education materials/instructions and have verbalized understanding. If ambulance or transport services are being used I further acknowledge being given a choice of service. ?? If you need to contact me, please call me at this number: . Patient/Form Coverer Name: Patient/Form Coverer Signature: Relationship to Patient: Witness Name/Signature: Date: Patient Care team information Care Team Personnel Name: Freda Farley NP Position: [facility] Associate Professional Member Role: PCP Address: [address] [place] [address] Telecom: Name: Perry Khan RN Position: Toni RN Member Role: Primary Care Nurse Name: Hope Camejo RN Position: KATIA RN Member Role: Primary Care Nurse Name: Eunice William RN Position: S RN Member Role: Primary Care Nurse Care Team Related Persons Name: PUMA ALCOCER Insurance Providers Guarantor name: RAHUL ERICK Health Plan Information #: 1 Payer: [employer] Member Number: [id number] Policy Number: NA Group Number: [id number] Health Plan Information #: 2 Payer: [employer] Member Number: [id number] Policy Number: NA Group Number: NA
--- OUTSIDE RECORDS SUMMARY | 2024-05-20 18:05 | XMS_ITS | Continuity of Care Document ---
Author Organization [facility] Address [address] [place] [address]- Support Name Relationship Address Phone DARLING, AVILA [...] Unknown Unava ilable Care Team Providers Care Veterinary Assistant Name Role Phone Miguelito VETERANS EMPLOYMENT REPRESENTATIVE, Freda Manzo Primary Care Physician Encounter [facility] Date(s): 04/09/24 - 05/09/24 [facility] [address] Encounter Type: Triage Allergies, Adverse Reactions, [...] virus vaccine, inactivated 01/25/11 Marty rded SARS-CoV-2(COVID-19)mRNA-LNP vac([id number]) 02/19/24 Recorded SARS-CoV-2(COVID-19)mRNA-LNP vac([id number]) 03/27/23 Recorded tetanus-diphtheria toxoids (Td) 06/28/22 Given tetanus-diphtheria toxoids (Td) 06/10/01 Recorded [id number] 12y+ bivalent booster vax 06/28/22 Given SARS-CoV-2 (COVID-19) mRNA BNT-162b2 vac 06/15/21 Recorded SARS-CoV-2 (COVID-19) mRNA BNT-162b2 vac 09/15/20 Recorded SARS-CoV-2 (COVID-19) mRNA BNT-162b2 vac 08/25/20 Recorded Measles/Mumps/Rubella Virus Vaccine 3 05/18/21 Giv en Measles/Mumps/Rubella Virus Vaccine 04/10/21 Recor ded Influenza Virus Vaccine (oldterm) 4 03/23/20 Recor ded Afluria (oldterm) 03/08/16 Given tetanus/diphtheria/pertussis, acel(Tdap) 5 05/07/12 Recorded 1Result Comment: [02/21/2015] [facility] 2[facility] Note: Per pt 3Result Comment: [facility]: [id number] 4Result Comment: [facility] 5Location History: [facility] Medications acetaminophen/butalbital/caffeine 325 mg-50 mg-40 mg [...] 0 Refills, Maintenance, 04/30/24 9:09:00 AM EST,Tablet, [id number], Partial fill upon patient request if the [...] Team Personnel Name: Freda Farley NP Position: [facility] Associate Professional Member Role: PCP Address: [address] [place] [address] Telecom: Name: Perry Khan RN Position: S RN Member Role: Primary Care Nurse Name: Stiven Tatum RN Position: S RN Member Role: Primary Care Nurse Name: Hope Camejo RN Position: S RN Member Role: Primary Care Nurse Name: Eunice William RN Position: [facility] RN Member Role: Primary Care Nurse Care Team Related Persons Name: AVILA SUAREZ Insurance Providers Guarantor name: RAHUL [place] Health Information #: 1 Payer: [facility] H[facility] Member Number: NA Policy Number: NA Group Number: NA
--- OUTSIDE RECORDS SUMMARY | 2024-05-20 18:06 | XMS_ITS | Continuity of Care Document ---
Author Organization [facility] Address [address] [place] [address]- Support Name Relationship Address Phone DARLING, AVILA [...] AVILA Personal Relationship Unknown Unava ilable DARLING, AIVLA Personal Relationship Unknown Unava ilable DARLING, AVILA [...] Unknown Unava ilable Care Team Providers Care Assistant Golf Course Superintendent Name Role Phone Miguelito POULTRY FARMER EGG, Freda Manzo Primary Care Physician Encounter [facility] Date(s): 04/08/24 - 05/08/[address] [address]- Encounter Type: Triage Allergies, Adverse Reactions, Alerts [...] virus vaccine, inactivated 01/25/11 Marty rded SARS-CoV-2(COVID-19)mRNA-LNP vac([id number]) 02/19/24 Recorded SARS-CoV-2(COVID-19)mRNA-LNP vac([id number]) 03/27/23 Recorded tetanus-diphtheria toxoids (Td) 06/28/22 Given tetanus-diphtheria toxoids (Td) 06/10/01 Recorded [id number] 12y+ bivalent booster vax 06/28/22 Given SARS-CoV-2 (COVID-19) mRNA BNT-162b2 vac 06/15/21 Recorded SARS-CoV-2 (COVID-19) mRNA BNT-162b2 vac 09/15/20 Recorded SARS-CoV-2 (COVID-19) mRNA BNT-162b2 vac 08/25/20 Recorded Measles/Mumps/Rubella Virus Vaccine 3 05/18/21 Giv en Measles/Mumps/Rubella Virus Vaccine 04/10/21 Recor ded Influenza Virus Vaccine (oldterm) 4 03/23/20 Recor ded Afluria (oldterm) 03/08/16 Given tetanus/diphtheria/pertussis, acel(Tdap) 5 05/07/12 Recorded 1Result Comment: [02/21/2015] [facility] 2Admin Note: Per pt 3Result Comment: [facility]: [id number] 4Result Comment: [facility] 5Location History: [facility] [...] 0 Refills, Maintenance, 04/30/24 9:09:00 AM EST,Tablet, [facility][id number], Partial fill upon patient request if the [...] Team Personnel Name: Freda Farley NP Position: [facility] PCO Associate Professional Member Role: PCP Address: [address] [place] [address] Telecom: Name: Perry Khan RN Position: S RN Member Role: Primary Care Nurse Name: Stiven Tatum RN Position: S RN Member Role: Primary Care Nurse Name: Hope Camejo RN Position: S RN Member Role: Primary Care Nurse Name: Eunice William RN Position: [facility] RN Member Role: Primary Care Nurse Care Team Related Persons Name: AVILA SUAREZ Insurance Providers Guarantor name: [facility] Information #: 1 Payer: [facility] [employer] HMO Member Number: NA Policy Number: NA Group Number: NA
--- OUTSIDE RECORDS SUMMARY | 2024-05-20 18:06 | XMS_ITS | Continuity of Care Document ---
Author Organization [facility] Address [address] [place] [address]- Support Name Relationship Address Phone DARLING, AVILA [...] Unknown Unava ilable Care Team Providers Care Personal Computer Network Engineer Name Role Phone Miguelito INSPECTOR ROUGH CASTINGS, Freda Manzo Primary Care Phys[id number] Date[facility] 04/14/24 - 04/21/[facility] [address] Attending Physician: Markie Goncalves Admitting Physician: Markie Goncalves Referring Physician: Markie Goncalves Encounter Type: Office [...] virus vaccine, inactivated 01/25/11 Marty rded SARS-CoV-2(COVID-19)mRNA-LNP vac([id number]) 02/19/24 Recorded SARS-CoV-2(COVID-19)mRNA-LNP vac([id number]) 03/27/23 Recorded tetanus-diphtheria toxoids (Td) 06/28/22 Given tetanus-diphtheria toxoids (Td) 06/10/01 Recorded [id number] 12y+ bivalent booster vax 06/28/22 Given SARS-CoV-2 (COVID-19) mRNA BNT-162b2 vac 06/15/21 Recorded SARS-CoV-2 (COVID-19) mRNA BNT-162b2 vac 09/15/20 Recorded SARS-CoV-2 (COVID-19) mRNA BNT-162b2 vac 08/25/20 Recorded Measles/Mumps/Rubella Virus Vaccine 3 05/18/21 Giv en Measles/Mumps/Rubella Virus Vaccine 04/10/21 Recor ded Influenza Virus Vaccine (oldterm) 4 03/23/20 Recor ded Afluria (oldterm) 03/08/16 Given tetanus/diphtheria/pertussis, acel(Tdap) 5 05/07/12 Recorded 1Result Comment: [02/21/2015] FLUVIRIN Done at [facility] 2Admin Note: Per pt 3Result Comment: [facility]: [id number] 4Result Comment: [facility] 5[facility] History[facility] Medications acetaminophen/butalbital/caffeine 325 mg-50 mg-40 mg oral tablet See Instructions, PRN Pain , Severe, Take 1 Tablet By Mouth Once Daily PRN for severe migrain. Use sparingly., # 10 tablet, 1 Refills, Maintenance, 04/08/24 2:07:00 PM EDT, [id number], Partial fill upon patient request if the prescription is for a schedule II opioid drug., Take 1 Tablet By Mouth Once Daily PRN for severe migrain. Use sparingly.,PRN:Pain , Severe, 158, cm, 249:02:00 EDT, Height, 55.8, kg, 11/29/23 11:14:00 EDT, Dry Weight Start Date: 04/08/24 Status: Ordered Quantity: 10.0 Unit: tablet Repeat number: 2 busPIRone 10 mg oral tablet take 1 tablet by mouth twice a day Start Date: 02/18/24 Status: Ordered Repeat number: 1 dilTIAZem 120 mg/24 hours oral tablet, extended release 1 tablet, By Mouth, Daily, # 90 tablet, 0 Refills, Maintenance, 02/18/24 10:12:00 AM EDT, [id number], 158, cm, 12/11/23 8:58:00 EDT, Height, 55.8, kg, 11/29/23 11:14:00 EDT, Dry Weight Start Date: 02/18/24 Status: Ordered Quantity: 90.0 Unit: tablet Repeat number: 1 Diltiazem HCl 2%/Lidoncaine 1.5% rectal ointment Diltiazem HCl 2%/Lidoncaine 1.5% rectal ointment, See Instructions, # 60 Gm, Refills 5, Tot. Refills 5, Maintenance, Apply a pea sized amount to anus twice daily, 11/29/23 1:23:00 PM EDT, Supply Start Date: 11/29/23 Status: Ordered Quantity: 60.0 Unit: g Repeat number: 6 estradiol 0.05 mg/24 hours weekly transdermal film, extended release 1 patch, Topically, Every week, # 4 patch, 0 Refills, Maintenance, 11/01/20 4:12:00 PM EDT, Patch, Partial fill upon patient request if the prescription is for a schedule II opioid drug. Start Date: 11/01/20 Status: Ordered Quantity: 4.0 Unit: patch Repeat number: 1 fluconazole 150 mg oral tablet 1 tablet = 150 mg, By Mouth, Once, epeat dose if still having symptoms in 72 hours, # 2 tablet, 0 Refills, Soft Stop, 09/25/23 3:08:00 PM EDT, Tablet, [facility][id number], Partial fill upon patient request if the prescription is for a schedule II opioid drug., 158, cm, 09/25/23 14:52:00 EDT, Height, 57,kg, 02/13/23 8:59:00 EDT, Dry Weight Start Date: 09/25/23 Status: Ordered Quantity: 2.0 Unit: tablet Repeat number: 1 lactobacillus acidophilus oral capsule 1 capsule, By Mouth, 2 times a day, # 20 capsule, 0 Refills, Maintenance, 09/25/23 3:08:00 PM EDT, [facility] #[id number], Partial fill upon patient request if the prescription is for a schedule II opioid drug., 1 capsule By Mouth 2 times a day,x10 days, 158, cm, 09/25/23 14:52:00 EDT, Height, 57, kg, 02/13/23 8:59:00 EDT, Dry Weight Start Date: 09/25/23 Stop Date: 10/05/23 Status: Ordered Quantity: 20.0 Unit: capsule Repeat number: 1 Lexapro 10 mg oral tablet 1 tablet = 10 mg, By Mouth, Daily, 0 Refills, Maintenance, 11/01/20 4:02:00 PM EDT, Partial fill upon patient request if the prescription is for a schedule II opioid drug. Start Date: 11/01/20 Status: Ordered Repeat number: 1 lidocaine 5% rectal cream See Instructions, apply 3 times a day, # 2 each, 0 Refills, Maintenance, 11/14/23 2:45:00 PM EDT, [facility] #[id number], Partial fill upon patient request if the prescription is for a schedule II opioid drug., apply 3 times a day, 158, cm, 11/14/23 14:03:00 EDT, Height, 57, kg, 02/13/23 8:59:00 EDT, Dry Weight Start Date: 11/14/23 Status: Ordered Quantity: 2.0 Unit: each Repeat number: 1 Indication: Residual hemorrhoidal skin tags lisinopril 10 mg oral tablet 1, tablet, By Mouth, Daily, # 90 tablet, Refills 1, Tot. Refills 1, Maintenance, 10/09/22 9:06:00 AM EDT, Route to Pharmacy Electronically, [facility] #[id number], 158, cm, 06/28/22 14:27:00 EST, Height, 57, kg, 12/31/20 22:20:00 EDT, Dry Weight Start Date: 10/09/22 Status: Ordered Quantity: 90.0 Unit: tablet Repeat number: 2 NexIUM 24HR 20 mg oral delayed release tablet 1 tablet = 20 mg, By Mouth, Daily in AM, 0 Refills, Maintenance, 08/06/23 1:17:00 PM EST, Partial fill upon patient request if the prescription is for a schedule II opioid drug. Start Date: 08/06/23 Status: Ordered Repeat number: 1 omeprazole 20 mg oral enteric coated capsule 1 capsule = 20 mg, By Mouth, Daily, # 90 capsule, 0 Refills, Maintenance, 11/28/22 2:47:00 PM EDT, [facility], Partial fill upon patient request if the prescription is for a schedule II opioid drug. Start Date: 11/28/22 Status: Ordered Quantity: 90.0 Unit: capsule Repeat number: 1 Requip = 0.25 mg, By Mouth, Daily, 0 Refills, Maintenance, 06/28/22 2:56:00 PM EST, Partial fill upon patient request if the prescription is for a schedule II opioid drug. Start Date: 06/28/22 Status: Ordered Repeat number: 1 Vyvanse 50 mg oral capsule = 40 mg, By Mouth, Daily in AM, take 1 capsule by mouth every morning, 0 Refills Start Date: 11/28/22 Status: Ordered Repeat number: 1 Xanax 1 mg oral tablet 0.5 tablet = 0.5 mg, By Mouth, Daily, PRN as needed for anxiety, prn, 0 Refills, Maintenance, 12/27/16 1:42:22 PM EDT Start Date: 12/27/16 Status: Ordered Repeat number: 1 Problem List [...] Team Personnel Name: Freda Farley NP Position: [facility] Associate Professional Member Role: PCP Address: [address] [place] [address] Telecom: Care Team Related Persons Name: AVILA SUAREZ Insurance Providers Guarantor name: RAHUL SUAREZ Health Plan Information #: 1 Payer: [facility] [employer] Member Number: [id number] Policy Number: NA Group Number: [id number] Health Plan Information #: 2 Payer: [facility] [employer] Member Number: [id number] Policy Number: NA Group Number: NA
--- OUTSIDE RECORDS SUMMARY | 2024-05-20 18:06 | XMS_ITS | Continuity of Care Document ---
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 Operator Name Role Phone Miguelito HERNANDEZ, Freda Manzo Primary Care Physician [phone] [id number] Date(s): 12/25/23 - 04/23/24 [facility] [address] [address] Attending Physician: Marlon Reyes MD Admitting Physician: Marlon Reyes MD Referring Physician: Freda Farley NP Encounter Type: Pre Office Visit Allergies, Adverse Reactions, Alerts Substance [...] virus vaccine, inactivated 01/25/11 Marty rded SARS-CoV-2(COVID-19)mRNA-LNP vac([id number]) 02/19/24 Recorded SARS-CoV-2(COVID-19)mRNA-LNP vac([id number]) 03/27/23 Recorded tetanus-diphtheria toxoids (Td) 06/28/22 Given tetanus-diphtheria toxoids (Td) 06/10/01 Recorded [id number] 12y+ bivalent booster vax 06/28/22 Given SARS-CoV-2 [...] Aid 2Admin Note: Per pt 3Result Comment: [facility]: [id number] 4[facility] Medications acetaminophen/butalbital/caffeine 325 mg-50 mg-40 mg oral tablet See Instructions, PRN Pain , Severe, Take 1 Tablet By Mouth Once Daily PRN for severe migrain. Use sparingly., # 10 tablet, 1 Refills, Maintenance, 04/08/24 2:07:00 PM EDT, [facility] #[id number], Partial fill upon patient request if the [...] Maintenance, 02/18/24 10:12:00 AM EDT, [id number], 158, cm, 12/11/23 8:58:00 EDT, Height, 55.8, [...] 09/25/23 3:08:00 PM EDT, Tablet, [facility][id number], Partial fill upon patient request if the prescription is for a schedule II opioid drug., 158, cm, 09/25/23 14:52:00 EDT, Height, 57,kg, 02/13/23 8:59:00 EDT, Dry Weight Start Date: 09/25/23 Status: Ordered Quantity: 2.0 Unit: tablet Repeat number: 1 lactobacillus acidophilus oral capsule 1 capsule, By Mouth, 2 times a day, # 20 capsule, 0 Refills, Maintenance, 09/25/23 3:08:00 PM EDT, [facility] #[id number], Partial fill upon patient request if the [...] Maintenance, 11/14/23 2:45:00 PM EDT, [facility] #[id number], Partial fill upon patient request if the [...] EDT, Route to Pharmacy Electronically, [facility] #[id number], 158, cm, 06/28/22 14:27:00 EST, Height, 57, [...] PCO Associate Professional Member Role: PCP Address: [address] [place] [address] Telecom: Name: Hope Camejo RN Position: Toni RN Member Role: Primary Care Nurse Care Team Related Persons Name: AVILA SUAREZ Insurance Providers Guarantor name: RAHUL SUAREZ Health Plan Information #: 1 Payer: [facility] [employer] Member Number: [id number] Policy Number: NA Group Number: [id number] Health Plan Information #: 2 Payer: [facility] [employer] Member Number: [id number] Policy Number: NA Group Number: [id number]
--- OUTSIDE RECORDS SUMMARY | 2024-05-20 18:06 | XMS_ITS | Continuity of Care Document ---
Author Organization [facility] Address [address] [place] [address]- Support Name Relationship Address Phone DARLING, AVILA [...] Unknown Unava ilable Care Team Providers Care Sales Service Manager Name Role Phone Miguelito IT ADMINISTRATIVE ASSISTANT, Freda Manzo Primary Care Physician [phone] Encounter [facility] Date(s): 04/08/24 - 05/08/[address] [address]- Encounter Type: Triage Allergies, Adverse Reactions, Alerts [...] virus vaccine, inactivated 01/25/11 Marty rded SARS-CoV-2(COVID-19)mRNA-LNP vac([id number]) 02/19/24 Recorded SARS-CoV-2(COVID-19)mRNA-LNP vac([id number]) 03/27/23 Recorded tetanus-diphtheria toxoids (Td) 06/28/22 Given tetanus-diphtheria toxoids (Td) 06/10/01 Recorded [id number] 12y+ bivalent booster vax 06/28/22 Given SARS-CoV-2 (COVID-19) mRNA BNT-162b2 vac 06/15/21 Recorded SARS-CoV-2 (COVID-19) mRNA BNT-162b2 vac 09/15/20 Recorded SARS-CoV-2 (COVID-19) mRNA BNT-162b2 vac 08/25/20 Recorded Measles/Mumps/Rubella Virus Vaccine 3 05/18/21 Giv en Measles/Mumps/Rubella Virus Vaccine 04/10/21 Recor ded Influenza Virus Vaccine (oldterm) 4 03/23/20 Recor ded Afluria (oldterm) 03/08/16 Given tetanus/diphtheria/pertussis, acel(Tdap) 5 05/07/12 Recorded 1Result Comment: [02/21/2015] [facility] 2Admin Note: Per pt 3Result Comment: [facility]: [id number] 4Result Comment: [facility] Medications acetaminophen/butalbital/caffeine 325 mg-50 mg-40 mg [...] 0 Refills, Maintenance, 04/30/24 9:09:00 AM EST,Tablet, [facility] #[id number], Partial fill upon patient request if the [...] Team Personnel Name: Freda Farley NP Position: [facility] PCO Associate Professional Member Role: PCP Address: [address] [place] [address] Telecom: Name: Perry Khan RN Position: S RN Member Role: Primary Care Nurse Name: Stiven Tatum RN Position: S RN Member Role: Primary Care Nurse Name: Hope Camejo RN Position: S RN Member Role: Primary Care Nurse Name: Eunice William RN Position: [facility] RN Member Role: Primary Care Nurse Care Team Related Persons Name: AVILA SUAREZ Insurance Providers Guarantor name: [facility] Information #: 1 Payer: [facility] [employer] H[employer] Member Number: NA Policy Number: NA Group Number: NA
== END 2024-05-18 16:17 | disposition home or self-care (01) ==
LOC: HO.LNP 16:16
PROVIDERS: Visit Provider Psychiatry & Neurology Psychiatry
DX: F11.20 Opioid dependence, uncomplicated (principal)
CPT/HCPCS: 80307

== ENCOUNTER 2024-05-21 08:35 | Outpatient (REF) | payer OTHER, SELFPAY ==
[2024-05-21 08:54] LABS: MANUAL DIFF FLAG NO
[2024-05-21 09:10] LABS: Basophils Absolute Auto 0.1 X10*3/uL (0.0-0.2); Basophils Percent Auto 0.9 % (0-2); Eosinophils Absolute Auto 0.1 X10*3/uL (0.0-0.4); Eosinophils Percent Auto 2.4 % (0-4); Hematocrit 37.6 % (37.0-47.0); Hemoglobin 12.7 g/dl (12.0-16.0); Imm Gran Abs Auto 0.01 X10*3/uL (0.00-0.03); Imm Gran Pct Auto 0.2 % (0.0-0.4); Lymphocytes Absolute Auto 1.7 X10*3/uL (1.2-4.9); Lymphocytes Percent Auto 30.4 % (20-40); Mean Corpuscular HGB Conc 33.8 g/dl (31.0-35.0); Mean Corpuscular Volume 94.7 fL (80.0-98.0); Mean Platelet Volume 9.3 fL (9.4-12.3); Monocytes Absolute Auto 0.3 X10*3/uL (0.1-1.2); Monocytes Percent Auto 6.2 % (2-11); Neutrophils Absolute Auto 3.3 x10*3/uL (2.0-8.3); Neutrophils Percent Auto 59.9 % (45-73); Platelet Count 303 X10*3/uL (160-400); Red Blood Count 3.97 X10*6/uL (4.20-5.50); Red Cell Distribution Width 13.2 % (11.0-16.0); White Blood Count 5.5 X10*3/uL (4.8-10.8)
[2024-05-21 09:17] LABS: Estimated Average Glucose 97 mg/dL; Hemoglobin A1C 99.3063 umol/L
[2024-05-21 09:41] LABS: Alanine Aminotransferase 133 U/L (0-31); Albumin Level 4.3 g/dL (3.5-5.0); Alkaline Phosphatase 73 U/L (39-117); Anion Gap 11 (12-20); Aspartate Amino Transferase 95 U/L (5-31); Bilirubin Total 0.2 mg/dL (0.0-1.0); Blood Urea Nitrogen 21 mg/dL (9-16); Calcium 9.8 mg/dL (8.4-10.2); Carbon Dioxide 28 mmol/L (22-29); Chloride 105 mmol/L (96-108); Cholesterol 195 mg/dL (<200); Estimated Glomerular Filt Rate > 60; Glucose Fasting 96 mg/dL (60-99); HDL Cholesterol 57 mg/dL (>40); LDL Cholesterol Calculated 109 mg/dL (<100); Magnesium 2.1 mg/dL (1.6-2.6); Potassium 3.9 mmol/L (3.3-5.1); Sodium 140 mmol/L (135-145); Total Protein 6.9 g/dL (6.5-8.0); Triglycerides 147 mg/dL (<150)
[2024-05-21 09:49] LABS: Erythrocyte Sedimentation Rate 10 MM/HR (0-20)
[2024-05-21 10:04] LABS: Free T4 (Free Thyroxine) 0.85 ng/dL (0.71-1.85); Thyroid Stimulating Hormone 0.82 uIU/mL (0.32-4.0); Vitamin D 25-OH Total 32.8 ng/mL (>30)
[2024-05-21 10:10] LABS: Folate 4.1 ng/mL (> or = 4.0)
[2024-05-21 10:20] LABS: Vitamin B12 757 pg/mL (200-900)
[2024-05-22 20:08] LABS: Homocysteine 7.7 umol/L (<10.4)
[2024-05-29 15:04] LABS: Vitamin B1 13 nmol/L (8-30)
== END 2024-05-21 08:36 | disposition home or self-care (01) ==
LOC: HO.LAB 08:35
PROVIDERS: PCP Nurse Practitioner Family; Visit Provider Psychiatry & Neurology Psychiatry
DX: F39 Unspecified mood [affective] disorder (principal); Z13.1 Encounter for screening for diabetes mellitus
CPT/HCPCS: 36415; 80053; 80061; 82306; 82607; 82746; 83036; 83090; 83735; 84425; 84439; 84443; 85025; 85652

== ENCOUNTER → 2024-05-27 13:32 | Outpatient (REF) | payer OTHER, SELFPAY ==
--- NOTE | 2024-05-27 13:37 | ECG_ITS ---
Test Reason : r/o qtc prolongation, Blood Pressure : / mmHG Vent. Rate : 078 BPM Atrial Rate : 078 BPM P-R Int : 140 ms QRS Dur : 086 ms QT Int : 402 ms P-R-T Axes : 056 037 061 degrees QTc Int : 458 ms Normal sinus rhythm Normal ECG No previous ECGs available Referred By: Namrata Veloz Electronically Signed By:CALDERON ESQUIVEL
[2024-05-27 14:19] LABS: Hematocrit 36.1 % (37.0-47.0); Hemoglobin 12.4 g/dl (12.0-16.0)
[2024-05-27 14:54] LABS: Alanine Aminotransferase 66 U/L (0-31); Aspartate Amino Transferase 29 U/L (5-31); Iron 121 mcg/dL (30-160); Percent Iron Saturation 37 % (15-50); Total Iron Binding Capacity 327 mcg/dL (228-428); Unsaturated Iron Binding 206 ug/dL
[2024-05-27 15:00] LABS: Gamma Glutamyl Transpeptidase 69 U/L (7-33)
[2024-05-28 13:53] LABS: Prolactin 6.9 ng/mL
== END ==
LOC: HO.CARD 13:32
PROVIDERS: PCP Nurse Practitioner Family; Visit Provider Psychiatry & Neurology Psychiatry
DX: F39 Unspecified mood [affective] disorder (principal); K76.89 Other specified diseases of liver
CPT/HCPCS: 36415; 82977; 83540; 84146; 84450; 84460; 85014; 85018; 93005

== ENCOUNTER → 2024-05-27 13:37 | Outpatient (BNV) | payer OTHER, SELFPAY | PROVIDERS: PCP Nurse Practitioner Family; Visit Provider Internal Medicine | DX: F39 Unspecified mood [affective] disorder (principal); K76.89 Other specified diseases of liver | CPT/HCPCS: 93010 ==

== ENCOUNTER 2024-05-28 11:15 | Outpatient (RCR) | payer OTHER, SELFPAY ==
[2024-05-15 18:06] VITALS: BP 140/88; PULSE 90; RESP 18; TEMP 36.5
[2024-05-15 18:07] VITALS: BMI 21.4
--- NOTE | 2024-05-18 16:04 | PC.ADMIT ---
Arlyn is a 48 year old female referred to PHP from [facility] Mental Health unit. 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 Upon approach she is alert and oriented X4, speech is clear and concise. She reports feeling Ok, reported endorsing 4/10 depression, she denied endorsing anxiety. When asked if she had any thoughts of wanting to hurt or kill self stated No. When asked if she had any thoughts of wanting to hurt or kill others stated No. She stated I fucked up, she reports she relapsed after two years and half of being cleaned. She reports she was Really happy, to the point people noticed. She then stated But then here I go telling myself I don't deserve to be happy and mess it all up. She reports she took a handful of Tylenol's and went to the bridge reported that due to husbands line of work they found her. She reports remorse over the attempt, reports feeling guilt and shame. She reports she needs help through the process, would like to work on coping skills. She reports she has a Really good, they are very supportive system. Copy of safety plan given, she verbalized understanding.
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
--- NOTE | 2024-05-26 13:00 | P.PNPSP_ITS ---
Subjective Subjective Date of Service: 05/26/24 Reason For Visit: anxiety Mental Status Exam Mental Status Exam Narrative: Alert, oriented, in no acute distress. Calm, cooperative, engaged, energetic. No psychomotor agitation or neurovegetative retardation. Eye contact maintained. Mood anxious, affect variable, mood congruent without notable lability. Speech normal. Thought process linear, coherent. Thought content related to stressors, feeling demoralized, helpless, transient hopelessness, denies SI, intention, urge or plan. Denies any aggressive ideation or HI. No paranoia or delusional content elicited. No evidence of psychosis. Insight limited, judgment fair but adequate Diagnostics Vital Signs (24Hr): BMI result Body Mass Index 21.4 Assessment & Plan Assessment & Plan (1) Opioid use disorder: Status: Acute Code(s): F11.90 - Opioid use, unspecified, uncomplicated (2) PAMELA (generalized anxiety disorder): Status: Acute Code(s): F41.1 - Generalized anxiety disorder (3) Mood disorder: Status: Acute Code(s): F39 - Unspecified mood [affective] disorder Plan continue guanfacine ER 1 mg in the am continue Vyvanse 50 mg qam continue buspirone 10 mg BID (move 2nd dose from HS to afternoon) continue escitalopram 20 mg qd stop Xanax 0.5 mg BID switch to lorazepam 1 mg qd prn (more liver-sparing) continue regular medications: estradiol patch (semiweekly), diltiazem 120 g qd patient was discharged on mirtazapine but says they are not taking it Reviewed lab work findings - elevated transaminases (stemming from CAROLEE overdose) will recheck tomorrow tthat they are trendin down rather than up (since she is avoiding further substances alcohol, Tylneol su other meds that can cause liver injury. Will switch over to lorazepam EKG, routine for baseline QTc for medication considerations as indicated UDS as indicated VS reviewed: shazia, BP 140/88;?90 bpm Continue to monitor Certification I certify that partial hospital treatment is medically necessary due to the symptoms and problems resulting from the patient's mental illness and the failure to treat the patient at the partial hospital level of care would likely result in the patient requiring inpatient psychiatric care which could not be prevented at a less intensive level of care. Total time managing care of this patient today ____ minutes. Discharge Plan Discharge Attending provider: Namrata Veloz Medications: New guanfacine 1 mg tablet extended release 24 hr 1 mg PO DAILY Qty: 14 0RF lorazepam 1 mg tablet 0.5 - 1 mg PO DAILY PRN (Reason: anxiety) Qty: 7 0RF Rx Instructions: Discontinue alprazolam aripiprazole 2 mg tablet 2 mg PO BEDTIME Qty: 14 0RF Continued estradiol [Edita] 0.075 mg/24 hr patch semiweekly 1 patch topical 2XW alprazolam 0.5 mg tablet 0.5 mg PO BID PRN (Reason: anxiety) buspirone 10 mg tablet 10 mg PO BID diltiazem HCl 120 mg tablet extended release 24 hr 120 mg PO DAILY escitalopram oxalate 20 mg tablet 20 mg PO DAILY Qty: 14 0RF lisdexamfetamine [Vyvanse] 50 mg Capsule 50 mg PO DAILY Qty: 14 0RF No Action mirtazapine 7.5 mg Tablet 7.5 mg PO BEDTIME Print Language: Spanish
--- NOTE | 2024-05-28 22:53 | P.PNPSP_ITS ---
Subjective Subjective Date of Service: 05/28/24 Reason For Visit: anxiety Interim History: dc Diagnostics Vital Signs (24Hr): BMI result Body Mass Index 21.4 Assessment & Plan Certification I certify that partial hospital treatment is medically necessary due to the symptoms and problems resulting from the patient's mental illness and the failure to treat the patient at the partial hospital level of care would likely result in the patient requiring inpatient psychiatric care which could not be prevented at a less intensive level of care. Total time managing care of this patient today ____ minutes. Discharge Plan Discharge Attending provider: Namrata Veloz Medications: New aripiprazole 2 mg tablet 2 mg PO BEDTIME Qty: 14 0RF guanfacine 2 mg tablet extended release 24 hr 2 mg PO QPM Qty: 14 0RF Rx Instructions: around 5-6 pm cholecalciferol (vitamin D3) [Vitamin D3] 50 mcg (2,000 unit) capsule 100 mcg PO DAILY Qty: 60 2RF Continued estradiol [Edita] 0.075 mg/24 hr patch semiweekly 1 patch topical 2XW buspirone 10 mg tablet 10 mg PO BID diltiazem HCl 120 mg tablet extended release 24 hr 120 mg PO DAILY escitalopram oxalate 20 mg tablet 20 mg PO DAILY Qty: 14 0RF lisdexamfetamine [Vyvanse] 50 mg Capsule 50 mg PO DAILY Qty: 14 0RF guanfacine 1 mg tablet extended release 24 hr 1 mg PO DAILY Qty: 14 0RF lorazepam 1 mg tablet 0.5 - 1 mg PO DAILY PRN (Reason: anxiety) Qty: 14 0RF Rx Instructions: Discontinue alprazolam; to be filled on or after 06/01/24 Changed mirtazapine 7.5 mg Tablet 7.5 mg PO BEDTIME PRN (Reason: Restless Leg(S)) Qty: 14 0RF Discontinued alprazolam 0.5 mg tablet 0.5 mg PO BID PRN (Reason: anxiety) Stand Alone Forms: Patient Portal Discharge page Patient Education: Stress (DC), Mood Disorders (DC), Acetaminophen Overdose (DC), Anxiety (ED), Opioid Use Disorder (DC) Print Language: Armenian
== END 2024-05-28 23:59 | disposition home or self-care (01) ==
LOC: HO.PHPA 11:15
PROVIDERS: Visit Provider Psychiatry & Neurology Psychiatry
DX: F11.90 Opioid use, unspecified, uncomplicated (principal); F41.1 Generalized anxiety disorder; F39 Unspecified mood [affective] disorder; Z79.899 Other long term (current) drug therapy
CPT/HCPCS: 90791; 90853